=== PATIENT | female | born 1965 | race Caucasian/White ===

== ENCOUNTER 2023-05-08 19:00 | Emergency (ER) | payer BC, SELFPAY ==
--- NOTE | ~2023-05-08 | CT_ITS ---
EXAMINATION: CT brain wo con DATE: 05/08/2023 22:33 INDICATION: Anticoagulated patient post fall with head injury TECHNIQUE: Computed tomography (CT) of the head was performed without intravenous contrast. Sagittal and coronal reconstructions were performed. The mA was adjusted according to patient size. Iterative reconstruction technique was employed. The dose-length product was 605.33 mGy-cm. COMPARISON: None FINDINGS: No fracture. No acute intracranial hemorrhage, acute infarction or abnormal extra axial fluid collect ion. Ventricles are normal and symmetric. No mass/mass effect. The orbits, paranasal sinuses and mast oid air cells are normal. IMPRESSION: 1. Normal head CT. No fracture or acute intracranial process. Reviewed, dictated and finalized at location A. GER PEST
--- NOTE | ~2023-05-08 | CT_ITS ---
EXAMINATION: CT cervical spine wo con DATE: 05/08/2023 22:34 INDICATION: Anticoagulated patient post fall with head injury TECHNIQUE: Computed tomography (CT) of the cervical spine was performed without intravenous contrast. Automated exposure control and iterative reconstruction technique were employed. The dose-length pro duct was 477.26 mGy-cm. COMPARISON: None FINDINGS: Alignment is normal. Vertebral body heights are normal. No fracture. Mild disc height loss at C3-C4, C4-C5 and C6-7. Multilevel mild uncovertebral osteoarthritis throughout the cervical spine on both th e left and right. Moderate facet osteoarthritis on the left at T1-T2 and on the right at T3-T4. Other schroeder mild multilevel cervical and upper thoracic facet osteoarthritis. No significant cervical facet or neural foraminal stenosis. Cervical soft tissues and visualized portions of the superior mediastin um and apices of lungs are unremarkable. IMPRESSION: 1. Mild cervical and upper thoracic spondylosis. No acute osseous abnormality. Reviewed, dictated and finalized at location A. CAL GOODS DRILL OPERATOR
--- NOTE | ~2023-05-08 | XR_ITS ---
XR hand LT min 3V 05/08/2023 19:52 INDICATION: Left hand pain PROCEDURE: 3 views left hand COMPARISON: No prior studies for comparison. FINDINGS: Fracture, dislocation or subluxation is not identified. There is polyarticular osteoarthrit is. The soft tissues appear within normal limits. No foreign bodies are identified. IMPRESSION: 1: NO ACUTE BONE OR JOINT ABNORMALITY IDENTIFIED. Reviewed, dictated and finalized at location A. UNICATION ANALYST
--- NOTE | ~2023-05-08 | XR_ITS ---
XR hand RT min 3V 05/08/2023 19:52 INDICATION: Right hand pain after fall PROCEDURE: 3 views right hand COMPARISON: No prior studies for comparison. FINDINGS: Fracture, dislocation or subluxation is not identified. There is a subchondral cyst of the scaphoid, likely degenerative. There is mild polyarticular osteoarthritis. The soft tissues appear wi thin normal limits. No foreign bodies are identified. IMPRESSION: 1: NO ACUTE BONE OR JOINT ABNORMALITY IDENTIFIED. Reviewed, dictated and finalized at location A. S ENGRAVER
--- NOTE | ~2023-05-08 | CT_ITS ---
EXAMINATION: CT chest abdomen pelvis w con DATE: 05/08/2023 22:34 INDICATION: Anticoagulated patient with right chest wall pain and right lower quadrant hematoma post fall TECHNIQUE: Computed tomography (CT) of the chest, abdomen, and pelvis was performed with 100 mL Omnip aque-350 intravenous contrast. Automated exposure control and iterative reconstruction technique were employed. The dose-length product was 913.66 mGy-cm. COMPARISON: None FINDINGS: CHEST CT: Mild dependent atelectasis in the right lower lobe. No pneumonia, pulmonary edema, pleural effusion o r pneumothorax. Heart size is normal. Atherosclerotic coronary artery calcifications. No pericardial or pleural effusion. Thoracic aorta is normal in caliber with no dissection or acute traumatic aortic injury. Mild thoracic spondylosis. No evident rib fracture or other acute osseous abnormality. ABDOMEN/PELVIS CT: Liver, gallbladder, spleen, pancreas, bilateral adrenal glands and kidneys are normal. Bowels includi ng the appendix are normal. Tiny fat-containing umbilical hernia. Bladder is normal. The uterus is no t identified and has likely been surgically resected. No free intraperitoneal gas or fluid. No pathol ogically enlarged abdominal or pelvic lymphadenopathy. The abdominal aorta and its major branch vesse ls appear unremarkable with no evident vascular injury. Subcutaneous contusion overlying the anterior right iliac crest and spine Mild lumbar levocurvature with mild spondylosis. IMPRESSION: 1. No acute osseous, vascular or visceral organ injury in the chest, abdomen or pelvis. Reviewed, dictated and finalized at location A. ITURE REPRODUCER
--- NOTE | ~2023-05-08 | XR_ITS ---
XR knee LT 3V 05/08/2023 19:52 INDICATION: Left knee pain after fall PROCEDURE: 3 views left knee COMPARISON: No prior studies for comparison. FINDINGS: Fracture, dislocation or subluxation is not identified. No joint effusion. The soft tissues appear within normal limits. No foreign bodies are identified. IMPRESSION: 1: NO ACUTE BONE OR JOINT ABNORMALITY IDENTIFIED. Reviewed, dictated and finalized at location A. SHIP
[2023-05-08 19:04] VITALS: BP 112/64; PULSE 86; RESP 16; TEMP 36.6; O2SAT 99
--- NOTE | 2023-05-08 19:16 | PC.NURSE ---
Addendum entered by Shelia Bar RN 05/08/23 19:38: Pt also reports in on asa and plavix. Original Note: Pt arrives ambulatory from home after fall approx 3 hours ago at her son's indoor track meet. She states that she was crossing the track between a break in runners when she tripped over uneven viri causing her to first fall onto her L knee, then twisted and hit R hip/lower abd and finally her right face. Pt has large bruising bruising to R lower abd.
[2023-05-08 20:19] LABS: Basophils Percent Auto 0.6 % (0.2-1.2); Eosinophils Absolute Auto 0.1 K/mm3 (0-0.3); Eosinophils Percent Auto 1.9 % (0-4.4); Hematocrit 42.4 % (37.0-47.0); Immature Granulocyte Absolute 0.01 K/mm3 (0.00-0.031); Immature Granulocyte Percent A 0.2 % (0-0.5); Lymphocytes Absolute Auto 1.41 K/mm3 (0.9-3.2); Lymphocytes Percent Auto 27.3 % (18.3-44.2); Mean Corpuscular Hemoglobin 32.2 pg (26-34); Mean Corpuscular Volume 97.5 fl (80-100); Monocytes Absolute Auto 0.6 K/mm3 (0.1-0.6); Platelet Count Result 225 k/mm3 (150-375); Red Blood Count 4.35 M/mm3 (4.2-5.4); Red Cell Distribution Width 12.2 % (11.5-14.5); White Blood Count 5.2 K/mm3 (4.5-10.0)
[2023-05-08 20:30] LABS: Prothrombin Time 13.8 Seconds (11.1-14.7)
--- NOTE | 2023-05-08 20:30 | ED.GENADULT ---
HPI - General Adult General Chief complaint: Fall Stated complaint: Fall right face/side Time Seen by Provider: 05/08/23 19:15 History of Present Illness HPI narrative: patient 57-year-old female presents to emergency department with chief complaint of fall. Patient reports that she was walking at a family member's track meet tripped over the trach fill landing on her right side of her body. Patient reports she has pain in the left knee pain in bilateral hands reports that she has a large hematoma developed in her right lower quadrant and pain in her right breast area patient states that she has pain in her neck and also struck her head. The patient reports that she has an abrasion to the left knee the patient does report that she is on anti-platelet therapy and takes Plavix Related Data Allergies Allergy/AdvReac Type Severity Reaction Status Date / Time ciprofloxacin Allergy Unknown Swelling Verified 05/08/23 19:01 Penicillins Allergy Unknown Hives / Verified 05/08/23 19:01 Red Face sulfamethoxazole Allergy Unknown Swelling Verified 05/08/23 19:01 trimethoprim Allergy Unknown Swelling Verified 05/08/23 19:01 Review of Systems Review of Systems: A 10 system review of systems was completed on the patient and is negative except for what is stated in the HPI. Nursing and ancillary documentation was reviewed. Exam Narrative: GENERAL: Well-appearing, well-nourished, and in no acute distress. HEAD: Normocephalic, atraumatic. EYES: PERRLA and EOMI. ENT: Nares clear, no rhinorrhea or epistaxis. Mucous membranes moist. NECK: Supple. mild midline C-spine tenderness CHEST: Clear to auscultation. No respiratory distress. chest wall is tender to palpation no appreciable ecchymosis HEART: Regular rate and rhythm. No murmur heard. Normal peripheral pulses. ABDOMEN: Soft, diffusely tender to palpation, nondistended, normal active bowel sounds. ecchymosis present no right lower quadrant EXTREMITIES: Normal range of motion slight bruising present to the dorsum of bilateral hands and left knee small abrasion to the dorsum of the left knee. No edema. SKIN: Warm, dry, no rash. NEURO: No focal deficits. Alert and oriented x3. PSYCH: Normal mood and affect. Course Vital Signs Vital signs: Vital Signs Temperature 36.6 C 05/08/23 19:04 Pulse Rate 86 05/08/23 19:04 Respiratory Rate 16 05/08/23 19:04 Blood Pressure 112/64 05/08/23 19:04 Pulse Oximetry 99 05/08/23 19:04 Temperature 36.6 C 05/08/23 19:04 Pulse Rate 86 05/08/23 19:04 Respiratory Rate 16 05/08/23 19:04 Blood Pressure 112/64 05/08/23 19:04 Pulse Oximetry 99 05/08/23 19:04 Medical Decision Making MDM Narrative Medical decision making narrative: differential diagnosis includes intracranial hemorrhage, cervical spine fracture, intrathoracic or intra-abdominal trauma Addendum x-rays of the hand bilaterally and knee on the left show no evidence fracture. CT head showed no evidence of acute intracranial pathology CT cervical spine showed no evidence of fracture CT chest abdomen pelvis showed a contusion present to the abdominal wall in the right lower quadrant Vital Signs Vital Signs: Vital Signs Temperature 36.6 C 05/08/23 19:04 Pulse Rate 86 05/08/23 19:04 Respiratory Rate 16 05/08/23 19:04 Blood Pressure 112/64 05/08/23 19:04 Pulse Oximetry 99 05/08/23 19:04 Temperature 36.6 C 05/08/23 19:04 Pulse Rate 86 05/08/23 19:04 Respiratory Rate 16 05/08/23 19:04 Blood Pressure 112/64 05/08/23 19:04 Pulse Oximetry 99 05/08/23 19:04 Lab Data 05/08/23 20:07 05/08/23 21:14 Labs: Lab Results 05/08/23 05/08/23 05/08/23 Range/Units 20:07 20:54 21:14 WBC 5.2 (4.5-10.0) K/mm3 RBC 4.35 (4.2-5.4) M/mm3 Hgb 14.0 (12.0-15.0) g/dL Hct 42.4 (37.0-47.0) % MCV 97.5 (80-100) fl MCH 32.2 (26-34) pg MCHC 33.0
[2023-05-08 20:31] LABS: Partial Thromboplastin Time 21.3 SECONDS (22.3-36.8)
[2023-05-08 21:03] LABS: Appearance Urine Clear (Clear); Bilirubin Urine Negative (Negative); Blood Urine Negative (Negative); Color Urine Yellow (Yellow); Glucose Urine UA Negative (Negative); Ketones Urine Negative (Negative); Leukocyte Esterase Ur Negative LEU/UL (Negative); Nitrate Urine Negative (Negative); Protein Urine Negative (Negative); Specific Grav Ur 1.023 (1.001-1.035); pH Urine 5.5 (5.0-9.0)
[2023-05-08 21:09] LABS: Add Urine Microscopic? NO
[2023-05-08 21:28] LABS: Alanine Aminotransferase 59 U/L (6-35); Albumin Level 4.4 g/dL (3.5-5.1); Alkaline Phosphatase 49 U/L (38-126); Anion Gap 11 mmol/L (8-16); Aspartate Amino Transferase 51 U/L (14-36); Bilirubin,Total 0.8 mg/dL (0.2-1.3); Blood Urea Nitrogen 24 mg/dL (7-17); Calcium 9.5 mg/dL (8.4-10.2); Carbon Dioxide 21 mmol/L (22-30); Chloride 104 mmol/L (98-107); Estimated CRCL calculation 70 ml/min; Estimated Glomerular Filt Rate > 60; Glucose 104 mg/dL (65-110); Potassium 4.2 mmol/L (3.4-5.0); Sodium 136 mmol/L (137-145)
[2023-05-09 00:30] VITALS: BP 118/64; PULSE 67; RESP 14; O2SAT 99
== END 2023-05-09 00:31 | disposition home or self-care (01) ==
PROVIDERS: Emergency Provider Emergency Medicine; PCP Physician Assistant
DX: S80.02XA Contusion of left knee, initial encounter (principal); S60.222A Contusion of left hand, initial encounter; S60.221A Contusion of right hand, initial encounter; S30.1XXA Contusion of abdominal wall, initial encounter; S09.90XA Unspecified injury of head, initial encounter; M47.812 Spondylosis without myelopathy or radiculopathy, cervical region; M47.814 Spondylosis without myelopathy or radiculopathy, thoracic region; Z79.02 Long term (current) use of antithrombotics/antiplatelets; W01.0XXA Fall on same level from slipping, tripping and stumbling without subsequent striking against object, initial encounter
CPT/HCPCS: 36415; 70450; 71260; 72125; 73130; 73562; 74177; 80053; 81003; 85025; 85610; 85730; 99284; Q9967

== ENCOUNTER 2024-10-02 00:48 | Day surgery (SDC) | payer BC, SELFPAY ==
[2024-09-20 12:13] VITALS: BMI 27.3
--- NOTE | 2024-09-20 12:25 | PC.NURSE ---
Spoke with patient regarding medication Plavix. Patient verbalizes understanding that the last dose is to be taken on 09/27/2024 and the Endoscopist will instruct them when to restart after the procedure.
--- OUTSIDE RECORDS SUMMARY | 2024-10-02 00:51 | XMS_ITS | Encounter Summary ---
Author Organization [facility] Address [address] [place] [address] Care Team Providers Care Claims Service Adjustor Name Role Phone Misbah Gan MD Primary Care Provider [phone] Encounter Details Date Type Department Care Team (Late st Contact Info) Description 12/07/2019 Pre-Procedure Call [place] Sign Language Interpreter [facility] [place], [place] [id number] Benjamín Mazariegos MD [address] [place] [address] Social History Tobacco Use Types Packs/Day Years Used Date Smoking Tobacco: Never Assessed Comments Unknown Sex and Gender Information Value Date Recorded Sex Assigned at Not on file Legal Sex Female 7:10 PM CDT Gender Identity Not on file Sexual Orientation Not on file COVID-19 Exposure Response Date Recorded In the last month, have you been in contact with someone who was confirmed or suspected to have Coronavirus / COVID-19? No / Unsure 11/29/2019 6:56 AM CDT documented as of this encounter Plan of Treatment Not on file documented as of this encounter Visit Diagnoses Not on filedocumented in this encounter Care Teams Claims Service Adjustor Relationship Specialty Start Date End Date Misbah Gan MD [address] [facility] [address] [place] [address] PCP - General FAMILY PRACTICE 11/21/19 documented as of this encounter
--- OUTSIDE RECORDS SUMMARY | 2024-10-02 00:51 | XMS_ITS | Encounter Summary ---
Author Organization [facility] Address [address] [place] [address] Phone Care Team Providers Care Parachute Manufacturing Supervisor Name Role Phone Misbah Gan MD Primary Care Provider [phone] Kashif Bailey MD Unavailable [phone] Miladys Rocha Primary Care Pr ovider Ashok Lantigua MD Primary Care Provider [phone] Encounter Details Date Type Department Care Team (Latest Contact Info) Description 11/27/2019 Orders Only [facility] Scanning, Provider Social History Tobacco Use Types Packs/Day Years Used Date Smoking Tobacco: Never Assessed Comments Unknown Sex and Gender Information Value Date Recorded Sex Assigned at Not on file 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 Gender Identity Not on file Sexual Orientation Not on file documented as of this encounter Plan of Treatment Upcoming Encounters Date Type Department Care Team (Latest Contact Info) Description 10/05/2024 9:00 AM CDT Hospital Encounter [facility] OR [facility] [place], [place] [id number] Anastacio Schultz MD [address] [place] [address] 10/05/2024 9:00 AM CDT - 10/05/2024 10:20 AM CDT Surgery [facility] OR [address] [place] [address] Anastacio Schultz MD [address] [place] [address] EXCISIONAL LEFT BREAST BIOPSY WITH NEEDLE LOCALIZATION X2 Scheduled Procedures Name Priority Associated Diagnoses Date/Ti me BIOPSY BREAST NEEDLE LOCALIZATION ATYPICAL DUCTAL HYPERPLASIA LEFT BREAST 10/05/2024 9:00 AM CDT documented as of this encounter Procedures Procedure Name Priority Date/Time Associated Diagnosis Comments CARDIOLOGY DOCUMENT SCAN 11/27/2019 documented in this encounter Results * CARDIOLOGY DOCUMENT SCAN (11/27/2019) Anatomical Region Laterality Modality Other us Provider Scanning CV CARDIAC SERVICES PROCEDURES Final Result documented in this encounter Visit Diagnoses Not on filedocumented in this encounter Care Teams Parachute Manufacturing Supervisor Relationship Specialty Start Date End Date Misbah Gan MD [address] [facility] [address] [place] [address] PCP - General 01/03/19 05/18/23 Miladys Rocha PA [address] [facility] [address] [place] [address] PCP - General Physician Game Operator 05/19/23 09/27/24 Ashok Lantigua MD [address] [place] [address] PCP - General Rheumatology 09/28/24 Kashif Bailey MD [address] [facility] [address] [place] [address] Referring Physician Cardiovascular Disease 03/07/20 documented as of this encounter
--- OUTSIDE RECORDS SUMMARY | 2024-10-02 00:51 | XMS_ITS | Encounter Summary ---
Author Organization [facility] Address [address] [place] [address] Phone Care Team Providers Care Cost Accounting Manager Name Role Phone Kashif Bailey MD Unavailable Miladys Rocha Primary Care Pr ovider Ashok Lantigua MD Primary Care Provider [phone] Encounter Details Date Type Department Care Team (Late st Contact Info) Description 07/17/2024 Telephone [facility] Cardiology [address] [facility] [address] [place] [address] [place] [address] Go Lopez MD [address] [facility] [address] [place], [place] [id number] Social History Tobacco Use Types Packs/Day Years Used Date Smoking Tobacco: Never Smokeless Tobacco: Never Personal Safety Answer Date Recorded Have you ever been in or are you currently in a harmful physical or emotional relationship or is someone making you feel afraid or unsafe? 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 Gender Identity Not on file Sexual Orientation Not on file documented as of this encounter Plan of Treatment Upcoming Encounters Date Type Department Care Team (Latest Contact Info) Description 10/05/2024 9:00 AM CDT Hospital Encounter [facility] OR [address] [place] [address] Anastacio Schultz MD [address] [place] [address] 10/05/2024 9:00 AM CDT - 10/05/2024 10:20 AM CDT Surgery [facility] Main OR [address] [place] [address] Anastacio Schultz MD [address] [place] [address] EXCISIONAL LEFT BREAST BIOPSY WITH NEEDLE LOCALIZATION X2 Scheduled Procedures Name Priority Associated Diagnoses Date/Ti me BIOPSY BREAST NEEDLE LOCALIZATION ATYPICAL DUCTAL HYPERPLASIA LEFT BREAST 10/05/2024 9:00 AM CDT documented as of this encounter Visit Diagnoses Not on filedocumented in this encounter Care Teams Cost Accounting Manager Relationship Specialty Start Date End Date Miladys Rocha PA PCP - General Physician Tour Narrator 05/19/23 09/27/24 Ashok Lantigua MD [facility] [address] [place] [address] PCP - General Rheumatology 09/28/24 Kashif Bailey MD Referring Physician Cardiovascular Disease 03/07/20 documented as of this encounter
--- OUTSIDE RECORDS SUMMARY | 2024-10-02 00:51 | XMS_ITS | Encounter Summary ---
Author Organization [facility] Address [address] [place] [address] Phone Care Team Providers Care Stitch Separator Name Role Phone Misbah Gan MD Primary Care Provider [phone] Kashif Bailey MD Unavailable [phone] Miladys Rocha Primary Care Pr ovider Ashok Lantigua MD Primary Care Provider [phone] Encounter Details Date Type Department Care Team (Latest Contact Info) Description 09/04/2021 Orders Only [facility] Scanning, Provider Social History Tobacco Use Types Packs/Day Years Used Date Smoking Tobacco: Never Smokeless Tobacco: Never Comments No Sex and Gender Information Value Date Recorded Sex Assigned at Not on file Legal Sex Female 8:55 PM CALL SPECIALIST Gender Identity Not on file Sexual Orientation Not on file documented as of this encounter Plan of Treatment Upcoming Encounters Date Type Department Care Team (Latest Contact Info) Description 10/05/2024 9:00 AM CDT Hospital Encounter [facility] OR [address] [place] [id number] Anastacio Schultz MD [address] [place] [address] 10/05/2024 9:00 AM CDT - 10/05/2024 10:20 AM CDT Surgery [facility] OR [address] [place] [address] [place] [address] Anastacio Schultz MD [address] [facility] [address] [place] [address] EXCISIONAL LEFT BREAST BIOPSY WITH NEEDLE LOCALIZATION X2 Scheduled Procedures Name Priority Associated Diagnoses Date/Ti me BIOPSY BREAST NEEDLE LOCALIZATION ATYPICAL DUCTAL HYPERPLASIA LEFT BREAST 10/05/2024 9:00 AM CDT documented as of this encounter Procedures Procedure Name Priority Date/Time Associated Diagnosis Comments CARDIOLOGY DOCUMENT SCAN 09/04/2021 documented in this encounter Results * CARDIOLOGY DOCUMENT SCAN (09/04/2021) Anatomical Region Laterality Modality Other us Provider Scanning CV CARDIAC SERVICES PROCEDURES Final Result documented in this encounter Visit Diagnoses Not on filedocumented in this encounter Care Teams Stitch Separator Relationship Specialty Start Date End Date Misbah Gan MD [address] [address] PCP - General 01/03/19 05/18/23 Miladys Rocha PA [address] [address] PCP - General Physician Beer Maker 05/19/23 09/27/24 Ashok Lantigua MD [address] [place] [address] PCP - General Rheumatology 09/28/24 Kashif Bailey MD [address] [address] Referring Physician Cardiovascular Disease 03/07/20 documented as of this encounter
--- OUTSIDE RECORDS SUMMARY | 2024-10-02 00:51 | XMS_ITS | Data Portability ---
Author Organization [facility] Address [address] [place] [address] Care Team Providers Care Landscape Management Technician Name Role Phone YARA RAMIREZ Primary Care Provider Unavailab le Assessment Encounter Date Assessment Date Assessment LastModified by Organization Details LastModified Time 05/17/2024 05/17/2024 Mammogram: due in june 2024. pap smear: KALEE, ovaries remain. cologuard was completed approx 2 years ago. eye exam: yearly dental exam: every 6months. UTD Not available 05/17/2024 11:08:44 Plan of Treatment Reminders Order Date Submit Date Provider Last Modified By Organization Details Last Modified Time Details Appointments ANY 15 2024 09:00A M MIESHA Blount Not available Not available Not available Lab noninvasi ve colorecta l cancer DNA + occult blood screening , QL, stool 2023 12 024 A[place]ANDRIA Kast (Cologuard Orders Only), [address], [address], [place], [address], 06/26/2024 18:57:40 Referral None recorded. Procedures None recorded. Surgeries None recorded. Imaging None recorded. Medication Orders None recorded. Patient TargetsNo targets recorded. Patient Instructions Encounter Date Encounter Id Patient Instructions Last Modified By Organization Details Last Modified Time 05/17/2024 [id number] A healthy lifestyle: care instructions Not available 05/17/2024 11:18:41 Reason for Referral None Reported. Results Created Date Observation Date Name Description Value Unit Range Abnormal Flag Note LastModifiedBy Organization Detail LastModifiedTime 06/17/1906/17/2024 COLOG UARD cologuard result reportable POSITI VE negati ve abnormal POSIT FLORIDALMA TEST RESUL T. A posit floridalma Colog uard resul t shoul d be follo wed with a colon oscop y or visua l exami natio n of the colon . The james l value (refe rence range ) for this assay is negat floridalma. TEST DESCR IPTIO N: [place] site algor ithmi c anne-marie sis of stool DNA-b hayley davis with hemog lobin immun oassa y. Quant itati ve value s of indiv idual bioma rkers are not repor table and are not assoc iated with indiv idual bioma rker resul t refer ence range s. Colog uard is inten ded for color ectal cance r scree geovanny of adult s of eithe r sex, 45 years or older , who are at [facility] for color ectal cance r (CRC) . Colog uard has been appro true for use by the U.S. FDA. The perfo rmanc e of Colog uard was estab lishe d in a cross secti onal study of [facility] adult s aged 50-84 . Colog uard perfo rmanc e in patie nts ages 45 to 49 years was estim ated by markie-g mackenziep anne-marie sis of near- age group s. Colon oscop ies perfo rmed for a posit floridalma resul t may find as the most clini meeta signi fican t lesio n: color ectal cance r [4.0% ], advan mike adeno ma (incl uding sessi le shira zachery polyp s great er than or equal to 1cm diame ter) [20%] or non- advan mike adeno ma [31%] ; or no color ectal neopl kyle [45%] . These estim ates are deriv ed from a prosp ectiv e cross -sect ional scree geovanny study of 10,00 0 indiv idual s at [facility] risk for color ectal cance r who were scree magalis with both Colog uard and colon oscop y. (Cheryl Andino. et al, N Engl J Med 2014; 370(1 4):12 86-12 97.) Colog uard may produ ce a false negat floridalma or false posit floridalma resul t (no color ectal cance r or preca ncero us polyp prese nt at colon oscop y follo w up). A negat floridalma Colog uard test resul t does not guara ntee the absen ce of CRC or advan mike adeno ma (pre- cance r). The curre nt Colog uard scree geovanny inter angela is every 3 years . (Amer ican Cance r Socie ty and U.S. Multi -Soci ety Task Force ). Colog uard perfo rmanc e data in a 10,00 0 patie nt pivot al study using colon oscop y as the refer ence metho d can be acces sed at the follo wing locat ion: www.e xactl abs.c om/re jj . Addit ional descr iptio n of the Colog uard test proce ss, warni ngs and preca ution s can be found at www.c ologu sangita.c om. Not Available Kast (Cologuard Orders Only) [address], [place], [address], 06/26/2024 18:57:40 06/15/19 25 06/14/2024 MAMMO , scree geovanny, digit al, bilat eral No observ ation record ed. [email or web address] [address], [address], 06/21/2024 18:24:10 06/22/19 25 06/21/2024 MAMMO , diagn ostic , digit al, unila teral No observ ation record ed. [address], [address], 06/22/2024 17:28:29 06/23/19 25 06/21/2024 MAMMO , diagn ostic , digit al, unila teral No observ ation record ed. [address] [place], [address], 06/27/2024 09:30:58 Result Notes None recorded. 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 Shweta Gaffney LPN null, [place] - [facility] 4 10:49:13 Coronary atherosclerosi s 839868480 Active 2023 MIESHA Blount Attn: Marcelinoin g,[address] [place], [address], [place] - [facility] 4 11:18:11 Hyperlipidemia 57827063 Active 2023 MIESHA Blount Attn: Accountin g,[address] [place], [address], [facility] - [facility] 4 11:18:13 Benign essential hypertension 1986734 Active 2023 MIESHA Blount Attn: Accountin g,[address] [place], [address], [place] [facility] 4 11:18:15 Long-term drug therapy Active 2023 MIESHA Blount Attn: Marcelinoin g,[address] [place], [address], [place] [facility] 4 11:18:17 Overweight 490951541 Active 2023 MIESHA Blount Attn: Marcelinoin g,[address] [place], [address], [place] [facility] 4 11:18:39 Body mass index 25-29 - overweight 829685899 Active 2023 MIESHA Blount Attn: Marcelinoin g,[address] [place], [address], [facility] - [facility] 4 11:18:40 History of placement of stent for coronary artery disease 244612183 Active 2023 MIESHA Blount Attn: Accountin g,[address] [place], [address], [facility] - [facility] 4 14:34:54 Problem Notes None recorded. Procedures Surgical History Date Name Laterality Status Provider Name and Address Organization Details Recorded Time 06/07/19 11 hysterectomy completed Shweta Gaffney LPN [place] [facility] 05/17/2024 10:54:46 06/07/19 05 excision of sebaceous cyst completed Shweta Gaffney LPN [place] [facility] 05/17/2024 10:55:39 06/07/18 71 Eye Surgery completed Shweta Gaffney LPN [place] [facility] 05/17/2024 10:54:59 biopsy of breast completed Shweta love DEPARTMENTAL BUYER [place] [facility] 05/17/2024 10:56:00 Imaging Results Imaging Date Name Status LastModified by Organiz ation Details LastModified Time 06/14/2024 MAMMO, screening, digital, [facility] [place] [address], [address], 06/21/2024 18:24:10 06/21/2024 MAMMO, diagnostic, digital, unilateral completed [address], [address], 06/22/2024 17:28:29 06/21/2024 MAMMO, diagnostic, digital, unilateral completed [address], [address], 06/27/2024 09:30:58 Procedure Notes None recorded. Medical Equipment None Reported. Allergies Allergen ID Allergen Name Allergen Category Reaction Reaction Severity Criticality Documentation Date Start Date Code Code System Note Provider Name and Address Organization Details Recorded Time 533212 Cipro medicatio n swelling moderate high 05/17/2024 46486 3 RxNorm Not Available Not Available Not Available 608196 sulfameth oxazole / trimethop rim medicatio n swelling moderate high 05/17/2024 76949 RxNorm Not Available Not Available Not Available 998388 Product containin g penicilli n (product) medicatio n rash mild high 05/17/2024 58908 8001 SNOMED Not Available Not Available Not Available Medications Name Sig Start Date Stop Date Status Note LastModified by Organization Details LastModified Time atorvastati n 40 mg tablet Take 1 tablet every day by oral route. active Not Available Not Available No t Available promethazin e-DM 6.25 mg-15 mg/5 mL oral syrup TAKE 5 ML BY MOUTH EVERY 4 TO 6 HOURS FOR 5 DAYS NEEDED 05/17 completed Not Available Not Available Not Available albuterol sulfate 2.5 mg/3 mL (0.083 %) solution for nebulizatio n USE 1 VIAL VIA NEBULIZER FOUR TIMES DAILY FOR 5 DAYS 05/17 completed Not Available Not Available Not Available azithromyci n 250 mg tablet TAKE 2 TABLETS BY MOUTH FOR 1 DAY THEN TAKE 1 TABLET BY MOUTH DAILY 05/17 completed Not Available Not Available Not Available lisinopril 20 mg tablet Take 1 tablet every day by oral route for 90 days. active Not Available Not Available No t Available prednisone 20 mg tablet TAKE 2 TABLETS BY MOUTH DAILY FOR 5 DAYS 05/17 completed Not Available Not Available Not Available isosorbide mononitrate ER 30 mg tablet,exte nded release 24 hr active Not Available Not Available Not Available clopidogrel 75 mg tablet active Not Available Not Available Not Available benzonatate 100 mg capsule TAKE 1 CAPSULE BY MOUTH THREE TIMES DAILY FOR 10 DAYS 05/17 completed Not Available Not Available Not Available nitroglycer in 0.4 mg sublingual tablet active Not Available Not Available Not Available albuterol sulfate HFA 90 mcg/actuati on aerosol inhaler INHALE 2 INHALATIO N BY MOUTH FOUR TIMES DAILY 05/17 completed Not Available Not Available Not Available bupropion HCl XL 150 mg 24 hr tablet, extended release One tab p.o. daily active Not Available Not Available No t Available Actemra ACTPen 162 mg/0.9 mL subcutaneou s pen injector active Not Available Not Available Not Available Vitals Date Recorded Body height Body mass index (BMI) Body weight Heart rate Body temperature Oxygen saturation Oxygen saturation in Arterial blood by Pulse oximetry Systolic blood pressure Diastolic blood pressure Provider Name and Address Organization Details Last Updated DateTime 4 172.72 cm 28.4 kg/m2 90547.7 7 g 82 /min 98.6 [degF] 99 % 99 % 122 mm[Hg] 78 mm[Hg] Shweta Gaffney LPN [place] - [facility] 10:44:57 Date Recorded Respiratory rate Systolic blood pressure Diastolic blood pressure Provider Name and Address Organization Details Last Updated DateTime 05/17/2024 18 /min 110 mm[Hg] 80 mm[Hg] MIESHA Blount Attn: [address] [facility], [place], [address], [place] [facility] 05/17/2024 11:17:18 Social History Question Answer Notes LastModified by Organizat ion Details LastModified Time Tobacco Smoking Status Never Smoker Shweta Gaffney LPN null, [place] [facility] 05/17/2024 10:52:11 Do You Have An Advance Directive? Yes Information n ot available 05/17/2024 What Is Your Level Of Alcohol Consumption? Occasional Information not available 05/17/2024 Are You Blind Or Do You Have Difficulty Seeing? No Information n ot available 05/17/2024 What Is Your Level Of Caffeine Consumption? Moderate Information not available 05/17/2024 In The 14 Days Before Symptom Onset, Have You Had Close Contact With A Laboratory-confirm ed COVID-19 While That Case Was Ill? No Information n ot available 05/17/2024 In The 14 Days Before Symptom Onset, Have You Had Close Contact With A Person Who Is Under Investigation For COVID-19 While That Person Was Ill? No Information not available 05/17/2024 Have You Been To An Area Known To Be High Risk For COVID-19? No Information not available 05/17/2024 Are You Currently Employed? Yes Information not available 05/17/2024 Are You Deaf Or Do You Have Serious Difficulty Hearing? No Information not available 05/17/2024 What Type Of Diet Are You Following? REGULAR Information n ot available 05/17/2024 What Is The Highest Grade Or Level Of School You Have Completed Or The Highest Degree You Have Received? [id number] Information not available 05/17/2024 Are There Any Guns Present In Your Home? Yes Information not available 05/17/2024 What Was The Date Of Your Most Recent Tobacco Screening? 05/17/2024 Information not available 05/17/2024 What Is Your Relationship Status? Information not available 05/17/2024 Do You Use Your Seat Belt Or Car Seat Routinely? Yes Information not available 05/17/2024 Do You Feel Stressed (tense, Restless, Nervous, Or Anxious, Or Unable To Sleep At Night)? [id number] Information not available 05/17/2024 Do You Use Any Illicit Or Recreational Drugs? No Information not available 05/17/2024 Do You Use Sunscreen Routinely? Yes Information not available 05/17/2024 Has Tobacco Cessation Counseling Been Provided? No Information not available 05/17/2024 Do You Or Have You Ever Used Any Other Forms Of Tobacco Or Nicotine? No Information not available 05/17/2024 Sex: Unknown Functional Status Question Answer Note LastModified by Organization D etails LastModified Time What is your exercise level? Moderate Information not available 05/17/2024 Mental Status None recorded. Family History Relationship Description Onset Age of this Age Resolved Age Notes LastModified by Organization Details LastModified Time Brother Dementia [email or web address] Not availab le 05/17/2024 10:50:20 Brother Diabetes mellitus [email or web address] Not available 2023 10:50:32 Brother Hypertensive disorder mhoganlpn Not available 2023 10:50:45 Brother Attention deficit hyperactivit y disorder tcarterma Not available 05/17 12:18:22 Brother Hypercholest erolemia tcarterma Not available 2023 12:18:30 Daughter Harmful pattern of use of alcohol tcarterma Not available 2023 12:18:14 Mother Attention deficit hyperactivit y disorder tcarterma Not available 05/17 12:18:22 Medical History Condition Response Anxiety Disorder N Diabetes N Coronary Artery Disease N Muscle, Joint, or Bone Problems Y Other N Atrial Fibrillation N Seizures/Epilepsy N Have you had a colonoscopy in the last 1 0 years? N Acid Reflux (GERD) N Cancer N Stroke N Thyroid Problems N Blood Clots N COPD N Depression N GI Problems N Asthma N Allergies N Have you had a PSA blood test in the las t year? N Skin Problems N Anemia N High Cholesterol Y Osteoporosis N Gynecological History Statement/Question Response Date of LMP 06/07/2010 Obstetrics History GPAL:G 0 P 0 0 0 0 Past Encounters Encounter ID Performer Location Encounter Start Date Encounter Closed Date Diagnosis/Indication Diagnosis SNOMED-CT Code Diagnosis ICD10 Code Diagnosis Note [id number] MIESHA Blount [facility] [address] [place] [address] 05/17/2024 10:24:22 05/17/2024 12:49:39 Adult health examination 193084399 Z00.01 wellness completed. Long-term drug therapy 228160330 Z79.891 Patient is up-to-date on labs with her specialist s Hyperlipidemia 76698869 E78.5 on statin therapy, managed by cardiology , atorvastat in 40 mg daily labs are up-to-date with them Benign ess ential hypertension 4986709 I10 very stable on lisinopril 20 mg daily Takayasu's disease 85559 9008 M31.[address] Lantigua follows with [facility]. on Actemra injection once weekly, managed by Rheumatolo gy.; Coronary atherosclerosis 115342262 I25.[address] Lopez with [facility]. She is asymptomat ic at this time. On atorvastat in 40 mg daily Screening for malignant neoplasm of colon 239150767 Z12.11 Patient opts for Cologuard screening method Body mass index 25-29 - overweight 597326833 Z68.28 BMI 28.4 Overweight 879955336 E66 .3 History of placement of stent for coronary artery disease 736313215 Z95.5 1 stent placed in the LAD. Dr. Lopez with [facility]. Patient is on Plavix 75 mg daily Health Concerns Section Related Observation LastModified by Organization Detai ls LastModified Time None Recorded Concern Status LastModified by Organization Details LastModified Time None Recorded Advance Directives Directive Y: Payers Encounter Date Sequence Insurance Name Policy Number Policy Krause Covered Member ID Krause Member ID Guarantor Name 05/17/2024 1 [place] [employer] 112 Dana Gonzalez [id number] Dana Gonzalez Notes Date Note Type Note Provider Name and Address Organization Details Recorded Time 05/17/2024 text/html Patient was seen once at the primary care providers old office. She presents today to reestablish at new location. She does have a history of takayasu's disease on Actemra pen managed by Rheumatology, with underlying coronary artery disease with 1 stent placed, hypertension and hyperlipidemia. She is followed by a roofing tile sorter. She does take Plavix 75 mg daily as well as atorvastatin 40 mg daily, isosorbide mononitrate ER 30 mg daily and lisinopril 20 mg daily. She has p.r.n. nitroglycerin sublingual available should she need it. She is due for colon screening. MIESHA Blount Attn: Accounting[address] [place], [address], [facility] - [facility] 06/03/2024 14:36:34 OBGyn Episode No OBEpisode recorded.
--- OUTSIDE RECORDS SUMMARY | 2024-10-02 00:51 | XMS_ITS | Encounter Summary ---
Author Organization [facility] Address [address] [place] [address] Care Team Providers Care Litigation Associate Name Role Phone Unavailable Primary Care Provider Unavailabl e Encounter Details Date Type Department Care Team (Late st Contact Info) Description 08/06/2022 Lab Requisition [facility] DermPath Lab [address] [place] [address] Pierre Venegas MD [address] [place] [address] Social History Tobacco Use Types Packs/Day Years Used Date Smoking Tobacco: Never Assessed Comments Unknown Sex and Gender Information Value Date Recorded Sex Assigned at Not on file Legal Sex Female 9:54 AM CDT Gender Identity Not on file Sexual Orientation Not on file documented as of this encounter Plan of Treatment Not on file documented as of this encounter Procedures Procedure Name Priority Date/Time Associated Diagnosis Comments DERMATOPATHOLOGY Routine 08/05/2022 3:33 AM [facility] documented in this encounter Results * DERMATOPATHOLOGY (08/05/2022 3:33 AM FIELD APPRAISER) Case Report Dermatopathology Report Case: [id number] Authorizing Provider: Pierre Venegas MD Collected: 08/05/2022 03:33 AM Ordering Location: [facility] DermPath Lab Received: 08/06/2022 02:20 PM Pathologist: Lucy Maki MD Specimens: A) - Skin, left cheek below eye B) - Skin, right mid flexor forearm 3:14 PM [facility] DERMATOPATHOLOGY [facility]ORATORY Amended Report A: This lesion is not present at the sampled margin of the specimen. B: This lesion is present at the margin of the specimen. 3:14 PM [facility] DERMATOPATHOLOGY [facility]ORAT[facility] Final Diagnosis Specimen A. SKIN, left cheek below eye: HYPERPLASTIC (HYPERTROPHIC) ACTINIC KERATOSIS (L57.0) ARISING IN A BENIGN VERRUCOUS KERATOSIS, INFLAMED (L82.1) Specimen B. 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 The specimen consists of a shave removal measuring 4x3x1 mm. Jar 0. Specimen B: Received is one formalin filled container labeled with the patient's name and designated right mid flexor forearm. The specimen consists of two shaved biopsies measuring 8x8x1 mm and 1x1x1 mm. Jar 0. 3:14 PM [facility] DERMATOP[facility]Y [facility] Microscopic Description Specimen A. SKIN, left cheek below eye: There is hyperkeratosis alternating with parakeratosis. There is epidermal hyperplasia with disorderly maturation of keratinocytes with nuclear pleomorphism confined to the lower half of the epidermis. The adjacent epidermis shows hyperkeratosis, papillomatosis, hypergranulosis, and acanthosis. Inflammatory cells are present within the dermis. These histological findings can be seen in a verruca vulgaris or a seborrheic keratosis. Specimen B. SKIN, right mid flexor forearm: The epidermis shows parakeratosis, full thickness disorderly maturation of keratinocytes, mitoses at different levels, and dyskeratotic cells. 3 3:14 PM [facility] Disclaimer An external and internal positive and negative controls are appropriate for the histochemical, immunohistochemical and immunofluorescence stain(s) in this case (if any), except where stated explicitly. The performance characteristics of the stain(s) cited in this report were developed and its performance characteristic determined by the Dermatopathology Laboratory at [facility], directed by Dr. Steve Traore. These tests need not be, and therefore are not, approved by the [place] Food and Drug Administration. The tests are used for clinical purposes. Billing Codes Specimen Charges Stain Charges 89231 20945 1 1 3 3:14 PM [facility] Embedded Images 3 3:14 PM [facility] Pathology/Cytology TISSUE SPECIMEN FROM SKIN / Unknown 08/05/2022 3:33 AM FIELD APPRAISER 08/06/2022 2:20 PM [facility] Miscellaneous samples (specimen) TISSUE SPECIMEN FROM SKIN / Unknown 08/05/2022 3:33 AM FIELD APPRAISER 08/06/2022 2:20 PM [facility] Pierre Venegas MD LAB - PATHOLOGY/CYTOLOGY ORD ERABLES Edited Result - Final DERMATOPATHOLOGY LABORATORY [facility] - Department of Dermatology [address], [address] [phone] documented in this encounter Visit Diagnoses Not on filedocumented in this encounter
--- OUTSIDE RECORDS SUMMARY | 2024-10-02 00:51 | XMS_ITS | Clinical Summary ---
Author Organization [facility] Address [address] [place] [address] Care Team Providers Care Press Leader Name Role Phone Kashif Bailey MD Unavailable [phone] Ashok Lantigua MD Primary Care Provider [phone] Allergies Active Allergy Reactions Criticality Noted Date Comments Ciprofloxacin Swelling Medium 12/20/2019 Penicillins Rash Medium 12/20/2019 Sulfamethoxazole-Trimethoprim Swelling Medium 2015 Medications aspirin 81 mg enteric coated tablet Take 1 tablet (81 mg total) by mouth daily 90 tablet 3 3 Active nitroglycerin (NITROSTAT) 0.[address] 1 tablet (0.4 mg total) under the tongue every 5 (five) minutes as needed for chest pain 100 tablet 1 4 Active clopidogreL (PLAVIX) 75 mg tablet TAKE 1 TABLET(75 MG) BY MOUTH DAILY 90 tablet 3 4 Active isosorbide mononitrate ER (IMDUR) 30 mg 24 hr tablet Take 1 tablet (30 mg total) by mouth daily 90 tablet 3 4 Active atorvastatin (LIPITOR) 40 mg tablet Take 1 tablet (40 mg total) by mouth daily 90 tablet 3 4 Active tocilizumab (Actemra ACTPen) 162 mg/0.9 mL pen injectorIndicat ions:GCA (giant cell arteritis) (HCC) Inject 162 mg under the skin every 7 days 10.8 mL 1 4 Active lisinopriL (PRINIVIL,ZESTR IL) 20 mg tablet TAKE 1 TABLET(20 MG) BY MOUTH DAILY 90 tablet 3 5 Active lisinopriL (PRINIVIL,ZESTR IL) 20 mg tablet Take 1 tablet (20 mg total) by mouth daily 90 tablet 3 4 025 Discontinued Hospital, Clinic, or Other Facility Administered Medication Ordered Dose Route Frequency Start Date End Date Status perflutren lipid (DEFINITY) 1.5 mL in sodium chloride 0.9% 10 mL syringe 1 - 10 mL IV Once in imaging 12/16/2021 Active perflutren protein-a (OPTISON) 3 mL in sodium chloride 0.9% 8 mL syringe 1 - 8 mL IV Once in imaging 02/04/2024 Active Active Problems Problem Noted Date Diagnosed Date Hyperlipidemia 04/15/2023 Essential hypertension 04/02/2020 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/02/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 04/02/2020 Dyspnea Encounters Date Type Department Care Team Description 07/21/2024 9:01 AM JOINT MACHINE OPERATOR - 07/21/2024 11:59 PM JOINT MACHINE OPERATOR Hospital Encounter [facility] Bldg 1 Breast [facility] [address] [place] [id number] Anastacio Schultz MD Mammogram abnormal Discharge Disposition: Discharge to home or self care 07/17/2024 Telephone [facility] Cardiology [address] [place] [address] [facility] 8th [place] [address] [place] [address] Go Lopez MD 07/14/2024 Telephone [facility] Cardiology [address] [place] [address] [facility] 8th [place] [address] [place] [address] Go Lopez MD from Last 3 Months Surgical History Surgery Date Site/Laterality Comments CARDIAC STENT PLACEMENT 06/07/2019 - 06/06/2020 BREAST BIOPSY 06/07/2015 - 06/06/2016 HYSTERECTOMY 06/07/2010 - 06/06/2011 EYE SURGERY 06/07/1972 - 06/06/1973 Right EYE SURGERY 06/07/1975 - 06/06/1976 Left BREAST BIOPSY 07/21/2024 Left Medical History Medical History Date Comments Raynaud disease Takayasu's arteritis (HCC) Hyperlipidemia 04/15/2023 Essential hypertension 04/02/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 04/02/2020 Family History Medical History Relation Name Comments Diabetes Brother Diabetes Father Hypertension Father Cancer Mother Heart attack Mother Relation Name Status Comments Brother Father Mother Social History Tobacco Use Types Packs/Day Years Used Date Smoking Tobacco: Never Smokeless Tobacco: Never Tobacco Cessation:Counseling Given: Not Answered Personal Safety Answer Date Recorded Have you ever been in or are you currently in a harmful physical or emotional relationship or is someone making you feel afraid or unsafe? Denies 02/21/2024 Comments No Sex and Gender Information Value Date Recorded Sex Assigned at Not on file Legal Sex Female 8:55 PM JOINT MACHINE OPERATOR Gender Identity Not on file Sexual Orientation Not on file Obstetrics History Para Term AB IAB SAB Ectopic Multiple Livin g Live Births 2 2 2 Date Outcome GA Total Labor Labor/2nd/3rd Weight Sex Type Anes PTL Sharee A1 A5 Name Clin Term Term Last Filed Vital Signs Vital Sign Reading Time Taken Comments Blood Pressure 114/73 04/04/2024 4:00 PM CDT Pulse 75 04/04/2024 4:00 PM CDT Temperature 36.6 C (97.9 F) 04/04/2024 4:00 PM CDT Respiratory Rate - - Oxygen Saturation 94% 02/04/2024 3:05 PM CDT Inhaled Oxygen Concentration - - Weight 84.9 kg (187 lb 3.2 oz) 04/04/2024 4:00 P M CDT Height 172.7 cm (5' 8 ) 04/04/2024 4:00 PM CDT Body Mass Index 28.46 04/04/2024 4:00 PM CDT Plan of Treatment Upcoming Encounters Date Type Department Care Team (Latest Contact Info) Description 10/05/2024 9:00 AM CDT Hospital Encounter [facility] [address] [place], [place] [phone] Anastacio Schultz MD [address] [place] [address] [phone] 10/05/2024 9:00 AM CDT - 10/05/2024 10:20 AM CDT Surgery [facility] [address] [place] [phone] Anastacio Schultz MD [address] [place] [address] [phone] EXCISIONAL LEFT BREAST BIOPSY WITH NEEDLE LOCALIZATION X2 Scheduled Procedures Name Priority Associated Diagnoses Date/Ti me BIOPSY BREAST NEEDLE LOCALIZATION ATYPICAL DUCTAL HYPERPLASIA LEFT BREAST 10/05/2024 9:00 AM CDT Health Maintenance Due Date Last Done Comments Colon Cancer Screening-Colonoscopy 1965 Depression Screening 1965 DTaP/Tdap/Td Vaccine (1 - Tdap) 1978 Hepatitis B Screening 1985 Regular Well Visit/Exam 18-64 1985 Pneumococcal vaccine <65 (1 of 2 - PCV) 1986 Zoster Vaccine (1 of 2) 1986 Covid-19 Vaccine (3 - Modern a risk series) 09/17/2020 08/20/2020, 07/18/2020 Influenza Vaccine (Season Ended) 2025 Breast Cancer Screening-Mammogram 06/14/2025 06/14/2024, 05/25/2023, 05/21/2022, Additional history exists Hepatitis C Screening Completed 01/05/2020 Medical Devices Implanted Type Area Fisher Purse Seine Device Identifier Shelf Expiration Date Model / Serial / Lot [employer] Eviva 13cm Identifier Biopsy Site [id number] - [id number] Implanted:Qty: 1 on 07/21/2024 by Anastacio Schultz MD at [facility] [employer] [id number] 08/09/2024 SMARK-RAJAT VA-13 / / [id number] [employer] Securmark 13cm Rigid End Bioabsorbable Net Top Hearing Instrument Specialist Breast Latex Free [id number]-13 - [id number] Implanted:Qty: 1 on 07/21/2024 by Anastacio Schultz MD at [facility] [employer] [id number] 01/11/2025 SMARK-RAJAT VA-2S-13 / / [id number] Procedures Procedure Name Priority Date/Time Associated Diagnosis Comments STEREOTACTIC BREAST BIOPSY LEFT Schedule Routine, Read Routine (OP Routine) 07/21/2024 10:32 AM JOINT MACHINE OPERATOR Mammogram abnormal SURGICAL PATHOLOGY Routine 07/21/2024 9: 54 AM JOINT MACHINE OPERATOR Mammogram abnormal SCREENING MAMMOGRAM BILATERAL W SILVANO Schedule Routine, Read Routine (OP Routine) 06/14/2024 1:42 PM JOINT MACHINE OPERATOR Screening mammogram, encounter for HEPATITIS C ANTIBODY Routine 01/05/2020 2:58 PM CDT Vasculitis from Last 3 Months or Most Recently Relevant to Health Maintenance Results * Stereotactic Breast Biopsy Left (07/21/2024 10:32 AM JOINT MACHINE OPERATOR) Anatomical Region Laterality Modality Breast Left Mammography 07/21/2024 10:4 9 AM JOINT MACHINE OPERATOR Narrative 07/21/2024 10:52 AM JOINT MACHINE OPERATOR EXAM DESCRIPTION: STEREOTACTIC BREAST BIOPSY LEFT REASON FOR STUDY: Left breast calcification groups x2 COMPARISON: 06/21/2024, 06/14/2024 BREAST COMPOSITION: There are scattered areas of fibroglandular density. TECHNIQUE/FINDINGS: Images were submitted from a left breast stereotactic biopsy performed by Dr. Schultz and evaluated at the time of the dictation. The radiologist was not present during the procedure. FINDINGS: Submitted images demonstrate calcifications within both submitted biopsy specimens (one specimen radiograph from each biopsy site). For full details, please refer to the procedure report. Post procedural mammography demonstrates both biopsy marking clips in expected position at the biopsy sites . IMPRESSION: 1. Images obtained during a left breast stereotactic biopsy x2. Post-procedure mammogram demonstrates both biopsy marking clips in expected position at the biopsy sites . Please refer to separate procedure report for full details of the procedure. 2. Radiologic-pathologic correlation is recommended. THIS IS AN ELECTRONICALLY VERIFIED FINAL REPORT 07/21/2024 10:52 AM - Electronically signed by Jorje Lay M.D., MD: Report ID: [id number] [facility] Anast[facility] Schultz MD IMG MAMMO PROCEDURES Final Res ult * Surgical pathology (07/21/2024 9:54 AM JOINT MACHINE OPERATOR) Tissue specimen (specimen) (Breast, capsular tissue) 07/21/2024 9:54 AM JOINT MACHINE OPERATOR Comment:Stereotactic breast biopsy Tissue specimen (specimen) (Breast, capsular tissue) 07/21/2024 10:08 AM JOINT MACHINE OPERATOR Comment:Stereotactic breast biopsy Narrative PATHOLOGY TEMP LLB FOR ASP - 07/26/2024 4:12 PM JOINT MACHINE OPERATOR [facility] Department of Pathology [address] [place] [address] Note to Patients: This report may contain a detailed description of human tissue sent by a health care provider to the laboratory for pathologic evaluation. The content of this report is essential for diagnosis and may provide important critical findings. This information may be unfamiliar to patients to review without a medical professional present. It is advised that the patient review this report in the presence of a health care provider who can answer questions and explain the details. Final Report Patient Name: FRANCISCO JAVIER GONZALEZ : 1965 (Age: 58) Gender: F Address: [address] [place] [address] Hospital #: [id number] Service: DEFAULT Location: Patient Type: [facility] ANCILLARY Taken: 07/21/2024 Received: 07/21/2024 Accessioned: 07/21/2024 Reported: 07/26/2024 Physician(s): Renita Mariscal P.A. Diagnosis: A. Breast, left, superior, core biopsy - At least atypical ductal proliferation with secretory change (see comment) - Associated calcifications B. Breast, left, inferior, core biopsy - At least atypical ductal proliferation with secretory change (see comment) - Associated calcifications Kalpana Campos MD Report Electronically Reviewed and Signed Out By Kalpana Campos MD 07/26/2024 16:12:10 Specimen(s) Received: A: Left breast calcifications/superior/cylinder clip/sbb B: Left breast calcifications/inferior/tophat clip/sbb Microscopic Description: Part A and B: Both biopsy specimens show calcifications associated with an atypical ductal proliferation characterized by dilated and mildly enlarged ducts lined by hobnailed cells with moderate to marked nuclear atypia. Scattered mitotic figures are identified. Focally the glands demonstrate architectural complexity including micropapillae and tufting. For further characterization, immunohistochemical stains (single antibody procedures with appropriate controls) were performed which show the foci of interest to be positive for ER while negative for CK5/6. While these features are concerning, the morphology in association with secretory change does not reach the diagnostic threshold for DCIS. The proliferation is best characterized as at least atypical with excision recommended. This case was reviewed with Dr. Jemma Blood and Dr. Ban Johnson who agree with the diagnosis. Part A and B: Both biopsy specimens show calcifications associated with an atypical ductal proliferation characterized by dilated and mildly enlarged ducts lined by hobnailed cells with moderate to marked nuclear atypia. Scattered mitotic figures are identified. Focally the glands demonstrate architectural complexity including micropapillae and tufting. For further characterization, immunohistochemical stains (single antibody procedures with appropriate controls) were performed which show the foci of interest to be positive for ER while negative for CK5/6. While these features are concerning, the morphology in association with secretory change does not reach the diagnostic threshold for DCIS. The proliferation is best characterized as at least atypical with excision recommended. This case was reviewed with Dr. Jemma Blood and Dr. Ban Johnson who agree with the diagnosis. Clinical History: The patient is a 58-year-old woman with history of left breast calcifications. Operative Procedure: Stereotactic left breast biopsy x2. Gross Description Received in two formalin jars labeled with the patient's identifiers. A. Labeled left breast calcifications/superior/cylinder clip/SBB are multiple cores and fragments of fibrofatty tissue (2.5 x 2.5 x 0.2 cm in aggregate). Multiple cores are received within a tissue cassette and are submitted labeled A 1 to A3. The remaining cores are labeled A4. Jar 0. Cold ischemia time = 27 minutes. Formalin fixation time = 56 hours. B. Labeled left breast calcification/inferior/top hat clip/SBB are multiple cores and fragments of fibrofatty tissue all received within a tissue cassette. Submitted entirely labeled B1 to B4. Jar 0. Cold ischemia time = 13 minutes. Formalin fixation time = 56 hours. [email or web address]/07/21/2024 12:56 Moira Taylor MS, PA (A Microscopic slide review and interpretation for this case was performed at [facility], Department of Surgical Pathology, [address] [facility] [id number], [place] [address] CLIA # [id number] Anastacio Schultz MD LAB PATHOLOGY ORDERABLES Final Result PATHOLOGY TEMP LLB FOR ASP * (ABNORMAL) Screening Mammogram Bilateral [place] (06/14/2024 1:42 PM JOINT MACHINE OPERATOR) Anatomical Region Laterality Modality Breast Bilateral Mammography Impressions 06/14/2024 1:59 PM JOINT MACHINE OPERATOR BI-RADS ATLAS category (overall): 0 - Incomplete: Needs Additional Imaging Evaluation 1. Indeterminate left breast calcifications as above. Further evaluation with diagnostic left mammography is recommended. 2. No mammographic evidence of malignancy in the right breast. Routine screening mammography of the right breast is recommended in 1 year. The patient has been or will be contacted. Narrative 06/14/2024 1:59 PM JOINT MACHINE OPERATOR Screening Mammogram Bilateral W [place]: 06/14/24 The study was acquired using full field digital technology and interpreted from soft copy. 2D digital mammographic views, as well as 3D digital tomosynthesis were performed in the CC and MLO projections. CLINICAL: Screening mammogram, encounter for. No relevant medical history has been documented for this patient. No known family history of breast cancer. COMPARISONS: 05/25/2023 Screening Mammogram Bilateral W [place] 05/21/2022 Screening Mammogram Bilateral [place] 04/28/2021 Screening Mammogram Bilateral [place] 01/05/2020 Screening Mammogram Bilateral [place] BREAST TISSUE: There are scattered areas of fibroglandular density. FINDINGS: Postoperative changes are redemonstrated in the upper outer left breast, posterior depth. Associated coarse calcifications at the surgical site are consistent with benign fat necrosis. More subtly calcifications in the upper outer left breast, middle depth, may have possibly increased and are indeterminate. There is no new suspicious finding in the right breast on mammogram. us Self Screening Mammogram IMG MAMMO PROCEDURES Fi nal Result * Hepatitis C antibody (01/05/2020 2:58 PM CDT) Hep C Ab Nonreactive Nonreactive ISABEL DORSEY Comment:Antibodies to HCV no t detected. Does NOT exclude the possibility of recent exposure to HCV. Blood specimen (specimen) 01/05/2020 2:58 PM CDT 01/05/2020 3:10 PM CDT us Ashok Lantigua MD LAB MICROBIOLOGY - GENERAL OR DERABLES Edited Result - Final [facility] Department [place] [address] from Last 3 Months or Most Recently Relevant to [place] [address] [facility] [place] [address] [facility] [employer] [facility] Care Teams Press Leader Relationship Specialty Start Date End Date Ashok Lantigua MD [facility] [address] [place] [address] PCP - General Rheumatology 09/28/24 Kashif Bailey MD Referring Physician Cardiovascular Disease 03/07/20
--- OUTSIDE RECORDS SUMMARY | 2024-10-02 00:51 | XMS_ITS | Data Portability ---
Author Organization [facility] [employer], Main Office Address [address] [place] [address] Assessment No assessment recorded. Plan of Treatment Reminders Order Date Submit Date Provider Last Modified By Organization Details Last Modified Time Details Appointments None recorded. Lab TSH + free T4, serum 2022 023 [employer] [facility], [address], [address], [place], [address], 3 04:18:15 CMP, serum or plasma 2022 023 [employer] [facility], [address], [place], [address], 3 04:18:17 CBC w/ auto diff 2022 023 [employer] [facility], [address], [place], [address], 3 04:18:20 vitamin B12 + folate, serum or blood 2022 023 [employer] [facility], [address], [place], [address], 3 04:18:22 lipid panel, serum 2022 023 [employer] [facility], [address], [place], [address], 3 04:18:16 HbA1c (hemoglobi n A1c), blood 2022 023 [employer] [facility], [address], [place], [address], 3 04:18:18 magnesium, serum or plasma 2022 023 [place] [employer] [facility], [address], [place], [address], 3 04:18:19 iron + TIBC + ferritin, serum 2022 023 [place] [employer] [facility], [address], [place], [address], 3 04:18:13 Referral None recorded. Procedures None recorded. Surgeries None recorded. Imaging MAMMO, screening, digital, bilateral 2022 023 [facility] [place], [address] [place] [address], [address], 3 10:49:58 Medication Orders bupropion HCl XL 150 mg 24 hr tablet, extended release 2022 023 [email or web address] [id number], [address], [place], [place], [id number], 3 18:37:35 Patient TargetsNo targets recorded. Patient InstructionsNo instructions recorded. Reason for Referral None Reported. Results Created Date Observation Date Name Description Value Unit Range Abnormal Flag Note LastModifiedBy Organization Detail LastModifiedTime 05/04/2005/05/2023 IRON, TIBC AND LUCY TIN PANEL iron, total 89 mcg/d L 45-160 normal Not Available [facility] [address] [place], [address], 05/05/2023 04:18:13 05/04/20 23 05/05/2023 IRON, TIBC AND LUCY TIN PANEL iron binding capacity 320 mcg/d L_(ca lc) 250-45 0 normal Not Available [facility] [address] [place], [address], 05/05/2023 04:18:13 05/04/20 23 05/05/2023 IRON, TIBC AND LUCY TIN PANEL % saturation 28 %_(ca lc) 16-45 normal Not Available [address], [address], 05/05/2023 04:18:13 05/04/20 23 05/05/2023 IRON, TIBC AND LUCY TIN PANEL ferritin 22 NG/mL 16-232 normal Not Available [address], [address], 05/05/2023 04:18:13 05/04/20 23 05/05/2023 TSH+F REE T4 TSH 1.96 mIU/L normal Refer ence Range > or = 20 Years 0.40- 4.50 Pregn maribell Range s First trime ster 0.26- 2.66 Secon d trime ster 0.55- 2.73 Third trime ster 0.43- 2.91 Not Available [address], [address], 05/05/2023 04:18:15 05/04/20 23 05/05/2023 TSH+F REE T4 T4, free 1.0 NG/dL 0.8-1. 8 normal Not Available [address], [address], 05/05/2023 04:18:15 05/04/20 23 05/05/2023 LIPID PANEL WITH RATIO S cholesterol, total 144 mg/dL <200 normal Not Available [address], [address], 05/05/2023 04:18:16 05/04/20 23 05/05/2023 LIPID PANEL WITH RATIO S HDL cholesterol 73 mg/dL > or = 50 normal Not Available [address], [address], 05/05/2023 04:18:16 05/04/20 23 05/05/2023 LIPID PANEL WITH RATIO S triglyceride s 63 mg/dL <150 normal Not Available [address], [address], 05/05/2023 04:18:16 05/04/20 23 05/05/2023 LIPID PANEL WITH RATIO S LDL-choleste rol 57 mg/dL _(xavi c) normal Refer ence range : <100 Petty able range <100 mg/dL for prima ry preve ntion ; <70 mg/dL for patie nts with CHD or diabe tic patie nts with > or = 2 CHD risk facto rs. LDL-C is now calcu lated using the Lida n-Hop kins raquelu radha n, which is a valid ated novel raj solis accur acy than the Fried wei equat ion in the estim ation of LDL-C . Lida michel SS et al. LINO. 2013; 310(1 9): 2061- 2068 (http ://ed ucati on.Qu Dawn Cervilenz. com/f aq/FA Q164) Not Available [address] [address] [place], [address], 05/05/2023 04:18:16 05/04/2005/05/2023 LIPID PANEL WITH RATIO S chol/HDLC ratio 2.0 (calc ) <5.0 normal Not Available [address], [address], 05/05/2023 04:18:16 05/04/20 23 05/05/2023 LIPID PANEL WITH RATIO S LDL/HDL ratio 0.8 (calc ) Below avera ge Risk: <2.34 [place] ge Risk: 2.35- 4.12 Moder ate Risk: 4.13- 5.56 High Risk: >5.57 Not Available [address] [address] [place], [address], 05/05/2023 04:18:16 05/04/20 23 05/05/2023 LIPID PANEL WITH RATIO S non HDL cholesterol 71 mg/dL _(xavi c) <130 normal For patie nts with diabe kristina plus 1 major ASCVD risk facto r, treat ing to a non-H DL-C goal of <100 mg/dL (LDL- C of <70 mg/dL ) is dulce eddy optio n. Not Available [address] [address] [place], [address], 05/05/2023 04:18:16 05/04/20 23 05/05/2023 COMPR EHENS FLORIDALMA METAB OLIC PANEL glucose 90 mg/dL 65-99 normal Fasti ng refer ence inter angela Not Available [address] [address] [place], [address], 05/05/2023 04:18:17 05/04/20 23 05/05/2023 COMPR EHENS FLORIDALMA METAB OLIC PANEL urea nitrogen (BUN) 16 mg/dL 7-25 normal Not Available [address] [address] [place], [address], 05/05/2023 04:18:17 05/04/20 23 05/05/2023 COMPR EHENS FLORIDALMA METAB OLIC PANEL creatinine 0.94 mg/dL 0.50-1 .03 normal Not Available [address] [address] [place], [address], 05/05/2023 04:18:17 05/04/20 23 05/05/2023 COMPR EHENS FLORIDALMA METAB OLIC PANEL eGFR 72 mL/mi n/1.7 3m2 > or = 60 normal Not Available [address] [address] [place], [address], 05/05/2023 04:18:17 05/04/20 23 05/05/2023 COMPR EHENS FLORIDALMA METAB OLIC PANEL BUN/creatini ne ratio SEE NOTE: (calc ) 6-22 Not Repor zachery: BUN and Creat inine are withi n refer ence range . Not Available [facility] [address] [address] [place], [address], 05/05/2023 04:18:17 05/04/20 23 05/05/2023 COMPR EHENS FLORIDALMA METAB OLIC PANEL sodium 142 mmol/ L 135-14 6 normal Not Available [address], [address], 05/05/2023 04:18:17 05/04/20 23 05/05/2023 COMPR EHENS FLORIDALMA METAB OLIC PANEL potassium 4.0 mmol/ L 3.5-5. 3 normal Not Available [address], [address], 05/05/2023 04:18:17 05/04/20 23 05/05/2023 COMPR EHENS FLORIDALMA METAB OLIC PANEL chloride 105 mmol/ L 98-110 normal Not Available [address], [address], 05/05/2023 04:18:17 05/04/20 23 05/05/2023 COMPR EHENS FLORIDALMA METAB OLIC PANEL carbon dioxide 30 mmol/ L 20-32 normal Not Available [address], [address], 05/05/2023 04:18:17 05/04/20 23 05/05/2023 COMPR EHENS FLORIDALMA METAB OLIC PANEL calcium 9.8 mg/dL 8.6-10 .4 normal Not Available [address], [address], 05/05/2023 04:18:17 05/04/20 23 05/05/2023 COMPR EHENS FLORIDALMA METAB OLIC PANEL protein, total 6.5 g/dL 6.1-8. 1 normal Not Available [address], [address], 05/05/2023 04:18:17 05/04/20 23 05/05/2023 COMPR EHENS FLORIDALMA METAB OLIC PANEL albumin 4.3 g/dL 3.6-5. 1 normal Not Available [address] [address] [place], [address], 05/05/2023 04:18:17 05/04/20 23 05/05/2023 COMPR EHENS FLORIDALMA METAB OLIC PANEL globulin 2.2 g/dL_ (calc ) 1.9-3. 7 normal Not Available [address] [address] [place], [address], 05/05/2023 04:18:17 05/04/20 23 05/05/2023 COMPR EHENS FLORIDALMA METAB OLIC PANEL albumin/glob ulin ratio 2.0 (calc ) 1.0-2. 5 normal Not Available [address] [address] [place], [address], 05/05/2023 04:18:17 05/04/20 23 05/05/2023 COMPR EHENS FLORIDALMA METAB OLIC PANEL bilirubin, total 0.8 mg/dL 0.2-1. 2 normal Not Available [address] [address] [place], [address], 05/05/2023 04:18:17 05/04/20 23 05/05/2023 COMPR EHENS FLORIDALMA METAB OLIC PANEL alkaline phosphatase 38 U/L 37-153 normal Not Available [address] [address] [place], [address], 05/05/2023 04:18:17 05/04/20 23 05/05/2023 COMPR EHENS FLORIDALMA METAB OLIC PANEL AST 19 U/L 10-35 normal Not Available [address] [address] [place], [address], 05/05/2023 04:18:17 05/04/20 23 05/05/2023 COMPR EHENS FLORIDALMA METAB OLIC PANEL ALT 22 U/L 6-29 normal Not Available [address] [address] [place], [address], 05/05/2023 04:18:17 05/04/20 23 05/05/2023 HEMOG LOBIN A1C hemoglobin A1C 5.4 %_of_ total _HGB <5.7 normal For the purpo se of ugo small for the prese nce of diabe kristina: <5.7% Consi stent with the absen ce of diabe kristina 5.7-6 .4% Consi stent with incre ased risk for diabe kristina (pred iabet es) > or =6.5% Consi stent with diabe kristina This assay resul t is consi stent with a decre ased risk of diabe kristina. Curre ntly, no conse nsus exist s xavier kim use of hemog lobin A1c for diagn osis of diabe kristina in child janie. Accor ding to Ameri can Diabe kristina Assoc iatio n (ADA) guide lines , hemog lobin A1c <7.0% repre sents optim al contr ol in non-p regna nt diabe tic patie nts. Diffe rent metri cs may apply to speci fic patie nt popul ation s. Stand ards of Medic al Care in Diabe kristina(A DA). Not Available [facility] [address] [address] [place], [address], 05/05/2023 04:18:18 05/04/20 23 05/05/2023 MAGNE SIUM magnesium 2.0 mg/dL 1.5-2. 5 normal Not Available [facility] [address] [address] [place], [address], 05/05/2023 04:18:19 05/04/20 23 05/05/2023 CBC (INCL UDES DIFF/ PLT) white blood cell count 3.8 thous and/u L 3.8-10 .8 normal Not Available [facility] [address] [address] [place], [address], 05/05/2023 04:18:20 05/04/20 23 05/05/2023 CBC (INCL UDES DIFF/ PLT) red blood cell count 4.20 fernanda on/uL 3.80-5 .10 normal Not Available [address], [address], 05/05/2023 04:18:20 05/04/20 23 05/05/2023 CBC (INCL UDES DIFF/ PLT) hemoglobin 13.5 g/dL 11.7-1 5.5 normal Not Available [address], [address], 05/05/2023 04:18:20 05/04/20 23 05/05/2023 CBC (INCL UDES DIFF/ PLT) hematocrit 41.0 % 35.0-4 5.0 normal Not Available [address], [address], 05/05/2023 04:18:20 05/04/20 23 05/05/2023 CBC (INCL UDES DIFF/ PLT) MCV 97.6 fL 80.0-1 00.0 normal Not Available [address], [address], 05/05/2023 04:18:20 05/04/20 23 05/05/2023 CBC (INCL UDES DIFF/ PLT) MCH 32.1 pg 27.0-3 3.0 normal Not Available [address], [address], 05/05/2023 04:18:20 05/04/20 23 05/05/2023 CBC (INCL UDES DIFF/ PLT) MCHC 32.9 g/dL 32.0-3 6.0 normal Not Available [address], [address], 05/05/2023 04:18:20 05/04/20 23 05/05/2023 CBC (INCL UDES DIFF/ PLT) RDW 12.1 % 11.0-1 5.0 normal Not Available [address], [address], 05/05/2023 04:18:20 05/04/20 23 05/05/2023 CBC (INCL UDES DIFF/ PLT) platelet count 168 thous and/u L 140-40 0 normal Not Available [address], [address], 05/05/2023 04:18:20 05/04/20 23 05/05/2023 CBC (INCL UDES DIFF/ PLT) MPV 10.8 fL 7.5-12 .5 normal Not Available [address], [address], 05/05/2023 04:18:20 05/04/20 23 05/05/2023 CBC (INCL UDES DIFF/ PLT) absolute neutrophils 1683 cells /uL 1500-7 800 normal Not Available [address], [address], 05/05/2023 04:18:20 05/04/20 23 05/05/2023 CBC (INCL UDES DIFF/ PLT) absolute lymphocytes 1566 cells /uL 850-39 00 normal Not Available [address], [address], 05/05/2023 04:18:20 05/04/20 23 05/05/2023 CBC (INCL UDES DIFF/ PLT) absolute monocytes 410 cells /uL 200-95 0 normal Not Available [address], [address], 05/05/2023 04:18:20 05/04/20 23 05/05/2023 CBC (INCL UDES DIFF/ PLT) absolute eosinophils 99 cells /uL 15-500 normal Not Available [address], [address], 05/05/2023 04:18:20 05/04/20 23 05/05/2023 CBC (INCL UDES DIFF/ PLT) absolute basophils 42 cells /uL 0-200 normal Not Available [address], [address], 05/05/2023 04:18:20 05/04/20 23 05/05/2023 CBC (INCL UDES DIFF/ PLT) neutrophils 44.3 % normal Not Available [address], [address], 05/05/2023 04:18:20 05/04/20 23 05/05/2023 CBC (INCL UDES DIFF/ PLT) lymphocytes 41.2 % normal Not Available [address], [address], 05/05/2023 04:18:20 05/04/20 23 05/05/2023 CBC (INCL UDES DIFF/ PLT) monocytes 10.8 % normal Not Available [address], [address], 05/05/2023 04:18:20 05/04/20 23 05/05/2023 CBC (INCL UDES DIFF/ PLT) eosinophils 2.6 % normal Not Available [address], [address], 05/05/2023 04:18:20 05/04/20 23 05/05/2023 CBC (INCL UDES DIFF/ PLT) basophils 1.1 % normal Not Available [address], [address], 05/05/2023 04:18:20 05/04/20 23 05/05/2023 VITAM IN B12/F OLATE , SERUM PANEL vitamin B12 410 pg/mL 200-11 00 normal Not Available [address], [address], 05/05/2023 04:18:22 05/04/20 23 05/05/2023 VITAM IN B12/F OLATE , SERUM PANEL folate, serum 14.5 NG/mL normal Refer ence Range Low: <3.4 Borde rline : 3.4-5 .4 Tania l: >5.4 Not Available [facility] [address] [address], [place], [address], 05/05/2023 04:18:22 05/11/20 23 05/08/2023 XR, hand, 3 or more view No observ ation record ed. [email or web address], [place], [address], 05/12/2023 14:29:59 05/25/20 23 05/25/2023 MAMMO , scree geovanny, digit al, bilat eral No observ ation record ed. [email or web address] [facility] [address] [place], [address], 06/24/2023 15:13:54 Result Notes None recorded. Problems Name Problem SNOMED Code Status Onset Date Resolution Date Notes Provider Name and Address Organization Details Recorded Time Essential hypertensio n 50161023 Active 2022 ASHLEY Woods, [facility] 3 10:22:09 Hyperlipide kristen 39016504 Active 2022 ASHLEY Woods, [facility] 3 10:22:14 Benign essential hypertensio n 0256407 Active 2022 MIESHA Blount [address], [place], [address], [facility] 3 12:08:17 Fatigue 84114325 Active 2022 MIESHA Blount [address], [address], [place], [address], [facility] 3 12:34:40 Bilateral cramp of muscle of lower limbs 0458559564683 9107 Active 2022 MIESHA Blount [address], [address], [place], [address], [facility] [place] [employer] [facility] 12:34:46 Weight gain 5471431 Active 2022 MIESHA Blount [address] [facility], [address] [address], [place], [address], [facility] [email or web address] [facility] [employer] [facility] 12:35:33 Poor focus 282536673 Active 2022 MIESHA Blount [address] [facility], [facility] [address], [place], [address], [facility] [email or web address] [facility] [employer] [facility] 12:36:09 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 Procedures Surgical History None recorded. Imaging Results Imaging Date Name Status LastModified by Organiz ation Details LastModified Time 05/08/2023 XR, hand, 3 or more view completed [address], [place], [address], 05/12/2023 14:29:59 05/25/2023 MAMMO, screening, digital, bilateral completed [email or web address] [facility] [address] [place] [address], [address], 06/24/2023 15:13:54 Procedure Notes None recorded. Medical Equipment None Reported. Allergies Allergen ID Allergen Name Allergen Category Reaction Reaction Severity Criticality Documentation Date Start Date Code Code System Note Provider Name and Address Organization Details Recorded Time 55532 Cipro medicatio n edema Not available Not available 04/19/2023 91986 3 RxBARBER Soto, [facility] [employer] [facility] 11:58:31 37849 sulfameth oxazole / trimethop rim medicatio n edema Not available Not available 04/19/2023 14033 RxEphraim Tyson RN null, [facility] [employer] [facility] 11:58:40 [address]8490 penicilli n V Not available Not available Not available Not available 04/19/2023 7984 RxNorm unkno wn react ion, pt state s she can take amoxi licil ceci. Jasmin Tyson RN null, [place] [employer] [facility] 3 11:59:22 Medications Name Sig Start Date Stop Date Status Note LastModified by Organization Details LastModified Time atorvastati n 40 mg tablet Take 1 tablet every day by oral route for 30 days. active Not Available Not Available No t Available doxycycline hyclate 100 mg capsule 04/16 completed Not Available Not Available Not Available valacyclovi r 1 gram tablet TAKE 1 TABLET BY MOUTH THREE TIMES DAILY FOR 7 DAYS 04/19 completed Not Available Not Available Not Available lisinopril 20 mg tablet Take 1 tablet every day by oral route for 30 days. active Not Available Not Available No t Available isosorbide mononitrate ER 30 mg tablet,exte nded release 24 hr Take 1 tablet by oral route for 30 days. active Not Available Not Available No t Available clopidogrel 75 mg tablet Take 1 tablet every day by oral route for 90 days. active Not Available Not Available No t Available nitroglycer in 0.[address] ONE TABLET UNDER TONGUE NEEDED FOR CHEST PAIN EVERY 5 MINUTES active Not Available Not Available No t Available mupirocin 2 % topical ointment APPLY TOPICALLY TO THE AFFECTED AREA THREE TIMES DAILY FOR 7 DAYS 04/16 completed Not Available Not Available Not Available methylpredn isolone 4 mg tablets in a dose pack FOLLOW PACKAGE DIRECTION S 04/16 completed Not Available Not Available Not Available bupropion HCl XL 150 mg 24 hr tablet, extended release Take 1 tablet every day by oral route in the morning. 2022 active Not Available Not Available Not Avai lable Actemra ACTPen 162 mg/0.9 mL subcutaneou s pen injector active Not Available Not Available Not Available Vitals Date Recorded Body temperature Body weight Body mass index (BMI) Body height Heart rate Oxygen saturation Oxygen saturation in Arterial blood by Pulse oximetry Systolic blood pressure Diastolic blood pressure Provider Name and Address Organization Details Last Updated DateTime 3 97.4 [degF] 55365.5 9 g 28.1 kg/m2 172.72 cm 78 /min 97 % 97 % 128 mm[Hg] 70 mm[Hg] Jasmin Tyson RN [employer] 12:02:30 Date Recorded Systolic blood pressure Diastolic blood pressure Provider Name and Address Organization Details Last Updated DateTime 04/19/2023 80 mm[Hg] 60 mm[Hg] MIESHA Blount [address] [facility], [facility] [address], [place], [address], [employer] 04/19/2023 12:37:40 Social History Question Answer Notes LastModified by Organizat ion Details LastModified Time Tobacco Smoking Status Never Smoker Jasmin Tyson RN null, [employer] 04/19/2023 11:52:01 What Is Your Level Of Alcohol Consumption? Occasional [email or web address] Information not available 04/19/2023 What Is Your Level Of Caffeine Consumption? Moderate [email or web address] Information not available 04/19/2023 In The 14 Days Before Symptom Onset, Have You Had Close Contact With A Laboratory-confir med COVID-19 While That Case Was Ill? No [email or web address] Information not available 04/16/2023 In The 14 Days Before Symptom Onset, Have You Had Close Contact With A Person Who Is Under Investigation For COVID-19 While That Person Was Ill? No [email or web address] Information not available 04/16/2023 Are You Currently Employed? Yes [email or web address] Information not available 04/19/2023 What Type Of Diet Are You Following? REGULAR [email or web address] Information not available 04/19/2023 What Is The Highest Grade Or Level Of School You Have Completed Or The Highest Degree You Have Received? 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 No [email or web address] Information no t available 04/19/2023 How Many Children Do You Have? 1 [email or web address] Information not available 04/19/2023 What Is Your Relationship Status? [email or web address] Information not available 04/19/2023 Do You Use Your Seat Belt Or Car Seat Routinely? Yes [email or web address] Information not available 04/19/2023 Do You Have Smoke And Carbon Monoxide Detectors In Your Home? Yes [email or web address] Information not available 04/19/2023 Are You Passively Exposed To Smoke? No [email or web address] Information no t available 04/19/2023 Are There Any Smokers In Your House? No [email or web address] Information not available 04/19/2023 Do You Feel Stressed (tense, Restless, Nervous, Or Anxious, Or Unable To Sleep At Night)? [id number] [email or web address] Information not available 04/19/2023 Do You Use Any Illicit Or Recreational Drugs? No [email or web address] Information not available 04/19/2023 Do You Use Sunscreen Routinely? Yes [email or web address] Information not available 04/19/2023 Have You Recently Traveled Abroad? No [email or web address] Information not available 04/16/2023 Do You Have Any Dietary Restrictions? No [email or web address] Information not available 04/19/2023 Do You Or Have You Ever Used Any Other Forms Of Tobacco Or Nicotine? No [email or web address] Information not available 04/19/2023 Sex: Unknown Functional Status Question Answer Note LastModified by Contract Cloud ion Details LastModified Time What is your exercise level? Occasional [email or web address] Information not available 04/19/2023 Mental Status None recorded. Family History Relationship Description Onset Age of this Age Resolved Age Notes LastModified by Organization Details LastModified Time Mother Malignant neoplasm of lung [email or web address] Not available 12:43:42 Father Diabetes mellitus [email or web address] Not available 12:44:09 Father Hypertensive disorder [email or web address] Not available 12:44:21 Medical History No medical history recorded. Gynecological HistoryNo gynecological history recorded. Obstetrics History GPAL:G 2 P 0 0 0 2 Type Value Living 2 Total 2 Past Encounters Encounter ID Performer Location Encounter Start Date Encounter Closed Date Diagnosis/Indication Diagnosis SNOMED-CT Code Diagnosis ICD10 Code Diagnosis Note [id number] MIESHA Blount [facility] [place] [address] [place] [address] 04/19/2023 11:44:50 04/19/2023 12:39:52 Adult health examination 680913358 Z00.01 new pt well exam completed Benign ess ential hypertension 7703779 I10 stable on lisinopril 20mg daily. Hyperlipidemia 90044182 E78.5 fasting lipid panel for baseline evaluation . .she is on atorvastat in 40mg daily. Long-term drug therapy 621513676 Z79.899 routine cbc, cmp and b12, folate ordered Bilateral cramp of muscle of lower limbs 7812943924 9617655 R25.2 pt c/o of cramps in the lower legs. check iron studies and magnesium labs Diabetes m ellitus screening 563449520 Z13.1 a1c screening ordered Weight gain 4807614 R63. 5 Thyroid panel ordered. Screening mammography 24 391208 Z12.31 mammogram due Poor focus 832795386 H52 .7 trial of wellbutrin XL 150mg daily. 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 on isosorbide mononitrat e ER 30mg daily , plavix 75mg daily Health Concerns Section Related Observation LastModified by Organization Detai ls LastModified Time None Recorded Concern Status LastModified by Organization Details LastModified Time None Recorded Advance Directives Directive None Recorded Payers Encounter Date Sequence Insurance Name Policy Number Policy Krause Covered Member ID Krause Member ID Guarantor Name 04/19/2023 1 [facility]: [employer] ([employer]O) 112 Dana Gonzalez [id number] Dana Gonzalez Notes Date Note Type Note Provider Name and Address Organization Details Recorded Time 04/19/20 23 text/htm l HyperlipidemiaReported bypatient.Control:usually well controlled; improving; at goal Compliance:compliant; compliant with diet; exercises Complications:no coronary artery disease; no peripheral artery disease; no cardiovascular diseaseHypertensionReported bypatient.Onset/Timing:better Associated Symptoms:no shortness of breath; no fatigue; no palpitations; no decline in exercise capacity; no snoring new pt apptwellness MIESHA Blount [address] [facility], [facility] [address], [place], [address], [facility] [employer] 05/02/2023 18:41:21 OBGyn Episode No OBEpisode recorded.
--- OUTSIDE RECORDS SUMMARY | 2024-10-02 00:51 | XMS_ITS | Encounter Summary ---
Author Organization [facility] Address [address] [place] [address] Phone Care Team Providers Care Magneto Repairer Name Role Phone Misbah Gan MD Primary Care Provider [phone] Kashif Bailey MD Unavailable [phone] Miladys Rocha Primary Care Pr ovider Ashok Lantigua MD Primary Care Provider [phone] Encounter Details Date Type Department Care Team (Latest Contact Info) Description 12/13/2019 Orders Only [facility] Scanning, Provider Social History Tobacco Use Types Packs/Day Years Used Date Smoking Tobacco: Never Assessed Comments Unknown Sex and Gender Information Value Date Recorded Sex Assigned at Not on file Legal Sex Female 8:55 PM SENIOR ADMINISTRATOR SUPPORT Gender Identity Not on file Sexual Orientation Not on file documented as of this encounter Plan of Treatment Upcoming Encounters Date Type Department Care Team (Latest Contact Info) Description 10/05/2024 9:00 AM CDT Hospital Encounter [facility] OR [facility] [place], [place] [id number] Anastacio Schultz MD [address] [place] [address] 10/05/2024 9:00 AM CDT - 10/05/2024 10:20 AM CDT Surgery [facility] OR [address] [place] [address] Anastacio Schultz MD [address] [facility] [address] [place] [address] EXCISIONAL LEFT BREAST BIOPSY WITH NEEDLE LOCALIZATION X2 Scheduled Procedures Name Priority Associated Diagnoses Date/Ti me BIOPSY BREAST NEEDLE LOCALIZATION ATYPICAL DUCTAL HYPERPLASIA LEFT BREAST 10/05/2024 9:00 AM CDT documented as of this encounter Procedures Procedure Name Priority Date/Time Associated Diagnosis Comments CARDIOLOGY DOCUMENT SCAN 12/13/2019 documented in this encounter Results * CARDIOLOGY DOCUMENT SCAN (12/13/2019) Anatomical Region Laterality Modality Other us Provider Scanning CV CARDIAC SERVICES PROCEDURES Final Result documented in this encounter Visit Diagnoses Not on filedocumented in this encounter Care Teams Magneto Repairer Relationship Specialty Start Date End Date Misbah Gan MD [address] [facility] [address] [place] [address] PCP - General 01/03/19 05/18/23 Miladys Rocha PA [address] [facility] [address] [place] [address] PCP - General Physician Tax Accounting Assistant 05/19/23 09/27/24 Ashok Lantigua MD [address] [place] [address] PCP - General Rheumatology 09/28/24 Kashif Bailey MD [address] [facility] [address] [place] [address] Referring Physician Cardiovascular Disease 03/07/20 documented as of this encounter
--- OUTSIDE RECORDS SUMMARY | 2024-10-02 00:51 | XMS_ITS | Clinical Summary ---
Author Organization [facility] Address [address] [place] [address] Care Team Providers Care Ticket Speculator Name Role Phone Unavailable Primary Care Provider Unavailabl e Source Comments [facility],non-owned Affiliates and Associated Physician Practices is amultiple site organization consisting of ambulatory clinics and hospital sitesin [place], [place], [place] and [place]. This disclosure is being madepursuant to the Care Everywhere program and may not contain all information available regarding this patient. Last updated 18.[facility] Allergies Active Allergy Reactions Criticality Noted Date Comments Ciprofloxacin 04/04/2016 Penicillins 04/04/2016 Sulfamethoxazole W-Trimethoprim 03/08 Medications * Be aware that medications may not be up to date on this document. Alwaysverify current medications with the patient. fluticasone propionate (FLONASE) 50 MCG/ACT nasal spray [place] 2 Sprays into each nostril once daily 1 Bottle 04/04/2016 Active Social History Tobacco Use Types Packs/Day Years Used Date Smoking Tobacco: Never Assessed Comments Unknown Sex and Gender Information Value Date Recorded Sex Assigned at Not on file Legal Sex Female 9:54 AM CDT Gender Identity Not on file Sexual Orientation Not on file Last Filed Vital Signs Vital Sign Reading Time Taken Comments Blood Pressure 122/74 04/04/2016 10:09 AM CDT Pulse 80 04/04/2016 10:09 AM CDT Temperature 36.7 C (98.1 F) 04/04/2016 10:09 AM CDT Respiratory Rate 18 04/04/2016 10:09 AM CDT Oxygen Saturation 98% 04/04/2016 10:09 AM CDT Inhaled Oxygen Concentration - - Weight 74.8 kg (165 lb) 04/04/2016 10:09 AM CDT Height 172.7 cm (5' 8 ) 04/04/2016 10:09 AM CDT Body Mass Index 25.09 04/04/2016 10:09 AM CDT Plan of Treatment Health Maintenance Due Date Last Done Comments COLOGUARD (AGES 45-75) - COL ON CA SCREENING 1967 COLON MONITORING 1967 COLONOSCOPY - COLON CA SCREENING 1967 CT COLONOGRAPHY - COLON CA SCREENING 1967 Colorectal Cancer Screening 1967 FIT - COLON CA SCREENING 1967 FLEX SIG - COLON CA SCREENING 1967 LIPID TESTING 1967 MAMMOGRAM 1967 PAP SMEAR 1967 HIV SCREENING 1982 HEPATITIS C SCREENING 07/30/1985 DTAP/TDAP/TD VACCINES (1 - Tdap) 1986 HEPATITIS B VACCINE (1 of 3 - 19+ 3-dose series) 1986 PNEUMOCOCCAL VACCINE 50+ (1 of 1 - PCV) 2017 ZOSTER VACCINE (1 of 2) 2017 COVID-19 VACCINE (1 - 2023-2 5 season) 2024 DEPRESSION SCREENING 06/07/2024 INFLUENZA VACCINE (Season Ended) 2025 HIB VACCINE Aged Out No longer eligi ble based on patient's age to complete this topic HPV VACCINE Aged Out No longer eligi ble based on patient's age to complete this topic MENINGOCOCCAL (Group B) VACC INE SHARED DECISION-MAKING Aged Out No longer eligibl e based on patient's age to complete this topic MENINGOCOCCAL GROUPS A/C/Y/W VACCINE Aged Out No longer eligible b ased on patient's age to complete this topic Insurance ANTHEM ANTHEM
--- OUTSIDE RECORDS SUMMARY | 2024-10-02 00:51 | XMS_ITS | Referral Summary ---
Author Organization [facility] Address [facility] [place] [address] Care Team Providers Care Audiovisual Lead Technician Name Role Phone Kashif Bailey MD Unavailable [phone] Ashok Lantigua MD Primary Care Provider [phone] Encounters Date Type Department Care Team Description 07/21/2024 9:01 AM MACHINE RIVETER - 07/21/2024 11:59 PM MACHINE RIVETER Hospital Encounter [facility] Medical Office Bldg 1 Breast [facility] [address] [place] [address] [place] [address] Anastacio Schultz MD Mammogram abnormal Discharge Disposition: Discharge to home or self care 07/17/2024 Telephone [facility] Cardiology [address] [place] [address] [place] [address] [place] [address] Go Lopez MD 07/14/2024 Telephone [facility] Cardiology [address] [place] [address] 8th [place] [address] [place] [address] Go Loepz MD from Last 3 Months Allergies Active Allergy Reactions Criticality Noted Date [...] arteritis 04/02/2020 Coronary artery disease invo lving [place] coronary artery of [place] heart without angina pectoris 04/02/2020 Dyspnea Social History Tobacco Use Types Packs/Day Years [...] on file Legal Sex Female 8:55 PM MACHINE RIVETER Gender Identity Not on file Sexual Orientation [...] 10/05/2024 9:00 AM CDT Hospital Encounter [facility] OR [address] [place] [address] Anastacio Schultz MD [address] [place] [address] 10/05/2024 9:00 AM CDT - 10/05/2024 10:20 AM CDT Surgery [facility] OR [address] [place] [address] Anastacio Schultz MD [address] [place] [address] EXCISIONAL LEFT BREAST BIOPSY WITH NEEDLE LOCALIZATION X2 Scheduled Procedures Name Priority Associated Diagnoses Date/Ti me BIOPSY BREAST NEEDLE LOCALIZATION ATYPICAL DUCTAL HYPERPLASIA LEFT BREAST 10/05/2024 9:00 AM CDT Medical Devices Implanted Type Area Rehab Specialist Device Identifier Shelf Expiration Date Model / Serial / Lot [employer] Eviva 13cm Identifier Biopsy Site [id number] - [id number] Implanted:Qty: 1 on 07/21/2024 by Anastacio Schultz MD at [facility] [employer] [id number] 08/09/2024 MOJGAN-RAJAT VA-13 / / [id number] [employer]mark 13cm Rigid End Bioabsorbable Net Top Director Radio Breast Latex Free [id number] - [id number] Implanted:Qty: 1 on 07/21/2024 by Anastacio Schultz MD at [facility] Breast [employer] [id number] 01/11/2025 SMARK-RAJAT VA-2S-13 / / [id number] Procedures Procedure Name Priority Date/Time Associated Diagnosis Comments STEREOTACTIC BREAST BIOPSY LEFT Schedule Routine, Read Routine (OP Routine) 07/21/2024 10:32 AM MACHINE RIVETER Mammogram abnormal SURGICAL PATHOLOGY Routine 07/21/2024 9: 54 AM MACHINE RIVETER Mammogram abnormal SCREENING MAMMOGRAM BILATERAL W SILVANO Schedule Routine, Read Routine (OP Routine) 06/14/2024 1:42 PM MACHINE RIVETER Screening mammogram, encounter for HEPATITIS C ANTIBODY Routine 01/05/2020 2:58 PM CDT Vasculitis from Last 3 Months or Most Recently Relevant to Health Maintenance Results * Stereotactic Breast Biopsy Left (07/21/2024 10:32 AM MACHINE RIVETER) Anatomical Region Laterality Modality Breast Left Mammography 07/21/2024 10:4 9 AM MACHINE RIVETER Narrative 07/21/2024 10:52 AM MACHINE RIVETER EXAM DESCRIPTION: STEREOTACTIC BREAST BIOPSY LEFT REASON [...] AM - Electronically signed by Jorje Lay M.D. MD: Report ID: [id number] Reading Location: [facility] Anastacio Schultz MD IM MAMMO PROCEDURES Final Res ult * Surgical pathology (07/21/2024 9:54 AM MACHINE RIVETER) Tissue specimen (specimen) (Breast, capsular tissue) 07/21/2024 9:54 AM MACHINE RIVETER Comment:Stereotactic breast biopsy Tissue specimen (specimen) (Breast, capsular tissue) 07/21/2024 10:08 AM MACHINE RIVETER Comment:Stereotactic breast biopsy Narrative PATHOLOGY TEMP LLB FOR ASP - 07/26/2024 4:12 PM MACHINE RIVETER [facility] Department of Pathology [address] [place] [address] Note to Patients: This report may contain [...] : 1965 (Age: 58) Gender: F Address: [address] [place] [address] Hospital #: [id number] Service: DEFAULT Location: Patient Type: [facility] ANCILLARY Taken: 07/21/2024 Received: 07/21/2024 Accessioned: 07/21/2024 [...] minutes. Formalin fixation time = 56 hours. [facility]/07/21/2024 12:56 Moira Taylor MS, PA (A Microscopic slide review and interpretation for this case was performed at [facility], Department of Surgical Pathology, [address] [facility] [address], [id number], [place] [address] CLIA # [id number] us Anastacio Schultz MD LAB PATHOLOGY ORDERABLES Final Result PATHOLOGY TEMP LLB FOR ASP * (ABNORMAL) Screening Mammogram Bilateral W Silvano (06/14/2024 1:42 PM MACHINE RIVETER) Anatomical Region Laterality Modality Breast Bilateral Mammography Impressions 06/14/2024 1:59 PM MACHINE RIVETER BI-RADS ATLAS category (overall): 0 - Incomplete: Needs Additional Imaging Evaluation 1. Indeterminate left breast calcifications as above. Further evaluation with diagnostic left mammography is recommended. 2. No mammographic evidence of malignancy in the right breast. Routine screening mammography of the right breast is recommended in 1 year. The patient has been or will be contacted. Narrative 06/14/2024 1:59 PM MACHINE RIVETER Screening Mammogram Bilateral W Silvano: 06/14/24 The [...] CDT) Hep C Ab Nonreactive Nonreactive [facility] Comment:Antibodies to HCV no t detected. Does NOT exclude the possibility of recent exposure to HCV. Blood specimen (specimen) 01/05/2020 2:58 PM CDT 01/05/2020 3:10 PM CDT Ashok Lantigua MD LAB MICROBIOLOGY - GENERAL OR DERABLES Edited Result - Final [facility] Department of Laboratories [place], [place] [id number] from Last 3 Months or Most Recently Relevant to Health Maintenance Insurance [facility] FEDERAL [facility] [place] [address] [facility] [place] [address] Care Teams Audiovisual Lead Technician Relationship Specialty Start Date End Date Ashok Lantigua MD [address] [place] [address] PCP - General Rheumatology 09/28/24 Kashif Bailey MD Referring Physician Cardiovascular Disease 03/07/20
--- OUTSIDE RECORDS SUMMARY | 2024-10-02 00:51 | XMS_ITS | Encounter Summary ---
Author Organization [facility] Address [address] [place] [address] Care Team Providers Care Skip Tender Name Role Phone Misbah Gan MD Primary Care Provider [phone] Encounter Details Date Type Department Care Team (Late st Contact Info) Description 02/28/2020 Abstract [facility], [address] [address] Cecilia Alves MA Social History Tobacco Use Types Packs/Day Years Used Date Smoking Tobacco: Never Smokeless Tobacco: Never Alcohol Use Standard Drinks/Week Comments Yes 1.7 (1 standard drink = 0.6 oz p ure alcohol) Comments No Sex and Gender Information Value Date Recorded Sex Assigned at Not on file Legal Sex Female 7:10 PM CDT Gender Identity Not on file Sexual Orientation Not on file documented as of this encounter Functional Status * RETIRED Are you deaf or do you have serious difficulty hearing Answer Date of Assessment Author Status No 12/13/2019 3:51 PM CDT Activ e * RETIRED Are you blind or do you have serious difficulty seeing, even when wearing glasses? Answer Date of Assessment Author Status No 12/13/2019 3:51 PM CDT Activ e * Do you have serious difficulty walking or climbing stairs? Answer Date of Assessment Author Status No 12/13/2019 3:51 PM CDT Dinah Burks RN Active * Do you have difficulty dressing or bathing? Answer Date of Assessment Author Status No 12/13/2019 3:51 PM CDT Dinah Burks RN Active * Because of a physical, mental, or emotional condition, do you have difficulty doing errands alone such as visiting a doctor's office or shopping? Answer Date of Assessment Author Status No 12/13/2019 3:51 PM Dinah Reyes RN Active documented as of this encounter Mental Status * Because of a physical, mental, or emotional condition, do you have serious difficulty concentrating, remembering, or making decisions? Answer Entry Date Author Status No 12/13/2019 3:51 PM Dinah Reyes RN Active documented in this encounter Plan of Treatment Not on file documented as of this encounter Procedures Procedure Name Priority Date/Time Associated Diagnosis Comments LIPID PANEL Routine 02/27/2020 documented in this encounter Results * LIPID PANEL (02/27/2020) CHOLESTEROL 144 0 - 199 HDL 70 > or = 50 TRIGLYCERIDES 70 0 - 149 LDL (CALCULATED) 60 0 - 129 02/27/2020 us Doc [facility] LABORATORY Final Result documented in this encounter Visit Diagnoses Not on filedocumented in this encounter Care Teams Skip Tender Relationship Specialty Start Date End Date Misbah Gan MD [address] [facility] [address] [place] [address] PCP - General FAMILY PRACTICE 11/21/19 documented as of this encounter
--- OUTSIDE RECORDS SUMMARY | 2024-10-02 00:51 | XMS_ITS | Clinical Summary ---
Author Organization [facility] Address [address] [place] [address] Care Team Providers Care Asbestos Brake Lining Finisher Helper Name Role Phone Misbah Gan MD Primary Care Provider [phone] Allergies Active Allergy Reactions Criticality Noted Date Comments Ciprofloxacin Swelling 12/13/2019 Penicillin V Swelling 12/13/2019 Sulfamethoxazole-Trimethoprim Swelling 2019 Medications ASPIRIN LOW DOSE 81 MG tablet TAKE 1 TABLET BY MOUTH DAILY 90 tablet 1 0 Active ACTEMRA ACTPEN 162 MG/0.9ML Solution Auto-injector Inject 162 mg into the skin once a week. 0 Active nitroglycerin 0.[address] 1 tablet (0.4 mg total) under the tongue every 5 (five) minutes as needed for Chest Pain (If taking 3rd dose, contact 911.). 25 tablet 1 1 Active ranolazine ER 1000 MG TABLET SR 12 HR 12 hr tablet Take 1,000 mg by mouth 2 (two) times daily. 180 tablet 1 2 Active atorvastatin (LIPITOR) 40 MG tablet TAKE 1 TABLET(40 MG) BY MOUTH EVERY NIGHT AT BEDTIME. PLEASE MAKE AN APPOINTMENT FOR FUTURE REFILLS 7 tablet 3 Active isosorbide mononitrate ER (IMDUR) 30 MG 24 hr tablet Take 1 tablet (30 mg total) by mouth daily. CALL FOR AN APPOINTMENT 7 tablet 3 Active lisinopril (PRINIVIL) 20 MG tablet Take 1 tablet (20 mg total) by mouth daily. CALL FOR AN APPOINTMENT 7 tablet 3 Active clopidogrel (PLAVIX) 75 MG tablet TAKE 1 TABLET(75 MG) BY MOUTH DAILY. PLEASE MAKE AN APPOINTMENT FOR FUTURE REFILLS 7 tablet 3 Active Active Problems Problem Noted Date Diagnosed Date Coronary artery disease invo lving [place] coronary artery of [place] heart without angina pectoris 04/02/2020 Essential hypertension 04/02/2020 Takayasu's arteritis (CMS/HCC HHS/HCC) 0 Precordial pain 11/27/2019 COOPER (dyspnea on exertion) 11/27/2019 Immunizations Immunization Administration Dates Next Due MODERNA COVID-19 (12+) MRNA, LNP-S, PF, 100 MCG/ 0.5 ML DOSE 07/18/2020 Social History Tobacco Use Types Packs/Day Years [...] Sign Reading Time Taken Comments Blood Pressure 130/0 08/12/2021 4:22 PM DIRECTOR OF GRADUATE MEDICAL EDUCATION Pulse 62 08/12/2021 4:01 PM DIRECTOR OF GRADUATE MEDICAL EDUCATION Temperature 36.6 C (97.9 F) 12/14/2019 12:43 PM CDT Respiratory Rate 16 12/25/2019 1:13 PM CDT Oxygen Saturation 100% 08/12/2021 4:01 PM DIRECTOR OF GRADUATE MEDICAL EDUCATION Inhaled Oxygen Concentration - - Weight 79.8 kg (176 lb) 10/01/2021 9:37 AM CDT Height 172.7 cm (5' 8 ) 10/01/2021 9:37 AM CDT Body Mass Index 26.76 10/01/2021 9:37 AM CDT Plan of Treatment Health Maintenance Due Date Last Done Comments ASCVD Statin 1965 Colorectal Cancer Screening Colonoscopy (10 Years) 1967 Annual Physical 1970 DTaP, Tdap and Td Vaccines ( 1 - Tdap) 1986 Hepatitis B Vaccines (1 of 3 - 19+ 3-dose series) 1986 Pneumococcal Vaccine: 50+ Years (1 of 2 - PCV) 1986 Mammogram Screening 2007 Zoster Vaccines (1 of 2) 2017 ASCVD LDL 04/11/2022 04/11/2021, 02/27/2020, 11/18/2019 COVID-19 Vaccine (2 2023-2 5 season) 2024 07/18/2020 Hepatitis C Completed 12/13/2019 Meningococcal B Vaccine Aged Out No l onger eligible based on patient's age to complete this topic Meningococcal Vaccine Aged Out No jaja johnnie eligible based on patient's age to complete this topic RSV Immunizations Under 20 Months Aged Out No longer eligible b ased on patient's age to complete this topic Procedures Procedure Name Priority Date/Time Associated Diagnosis Comments LIPID PANEL Routine 04/11/2021 7:55 AM CDT Dyslipidemia HEPATITIS PANEL,ACUTE Routine 12/13/2019 5:11 AM CDT Coronary artery disease involving [place] coronary artery of [place] heart with unstable angina pectoris from Last 3 Months or Most Recently Relevant to Health Maintenance Results * LIPID PANEL (04/11/2021 7:55 AM CDT) CHOLESTEROL 157 <200 MG/DL 04/11/2021 9:15 AM CDT [facility] TRIGLYCERIDES 60 <150 MG/DL 04/11/2021 9:15 AM CDT [facility] HDL 88 >40.0 MG/DL 04/11/2021 9:15 AM CDT [facility] LDL (CALCULATED) 57 <100 MG/DL 04/11/20 9:15 AM CDT [facility] NON HDL CHOLESTEROL 69 <130 MG/DL 04/11 9:15 AM CDT [facility] CHOL/HDL RATIO 1.8 0.0 - 4.5 04/11/2021 9:15 AM CDT [facility] VLDL CALCULATION 12 5 - 55 MG/DL 04/11/2021 9:15 AM CDT [facility] LIPID INTERPRETATION 04/11/2021 9:15 AM CDT [facility] Comment: NIH CONCENSUS REPORT RECOMMENDATIONS: ADULT CHILD LOW RISK: CHOLESTEROL <200 <170 TRIGLYCERIDE <150 --- HDL >=60 --- LDL <100 <110 BORDERLINE: CHOLESTEROL 200-239 170-199 TRIGLYCERIDE 150-199 --- HDL 40-59 --- LDL 100-159 110-129 HIGH RISK: CHOLESTEROL >=240 >=200 TRIGLYCERIDE >=200 --- HDL <40 --- LDL >=160 >=130 04/11/2021 7:55 AM CDT Kashif Bailey MD LABORATORY Final Result [facility] [address] [place] [address], [place] [phone] * HEPATITIS PANEL,ACUTE (12/13/2019 5:11 AM CDT) HEPATITIS B SURFACE AG NON-REACTI VE NON-REACTI VE 12/14/2019 7:59 AM CDT [facility] HEP B CORE IGM NON-REACTI VE NON-REACTI VE 12/14/2019 7:59 AM CDT [facility] HAV IGM NON-REACTI VE NON-REACTI VE 12/14/2019 7:59 AM CDT [facility] HEPATITIS C AB NON-REACTI VE NON-REACTI VE 12/14/2019 7:59 AM CDT [facility] 12/13/2019 5:11 AM CDT Kashif Bailey MD LABORATORY Final Result Performing Organization Address City/[facility]/ZIP Co de Phone Number [facility] [address] [place] [address], [place] [phone] from Last 3 Months or Most Recently Relevant to Health Maintenance Insurance [address] Advance Directives * Full Code (Latest Code Status on File) Date Activated Date Inactivated Comments 12/13/2019 3:41 PM 12/14/2019 4:40 PM Care Teams Asbestos Brake Lining Finisher Helper Relationship Specialty Start Date End Date Misbah Gan MD [address] [place] [address] PCP - General FAMILY PRACTICE 11/21/19
[2024-10-02 08:18] VITALS: BP 127/78; PULSE 68; RESP 16; TEMP 36.5; O2SAT 99; BMI 28.3
[2024-10-02] MEDS: LACTATED RINGERS 1,000 ML 150 ML IV CONT (08:26)
--- NOTE | 2024-10-02 08:49 | PM.HPGS ---
History of Present Illness History of Present Illness Consent: Risks, benefits, and alternatives have been discussed and questions answered. Patient agrees to proceed with procedure. Chief complaint: Fecal abnormalities Narrative: Dana Gonzalez is a 59 year old female here for first colonoscopy, had + cologuard Review of Systems Review of Systems: All systems reviewed & are unremarkable except as noted in HPI and below PMFSH Past Medical History Medical History (Updated 10/02/24 @ 08:54 by Esteban Goldman MD) Positive colorectal cancer screening using Cologuard test Social History Social History Smoking status: Never smoker Substance use type: does not use Living arrangements: with family Spiritual care concerns: No Meds Home Medications and Allergies Home Medications ?Medication ?Instructions ?Recorded ?Confirmed ?Type cyclobenzaprine 10 mg tablet 10 mg PO TID PRN muscle spasm #21 05/09/23 09/20/24 Rx tabs aspirin 81 mg capsule 81 mg PO DAILY 09/20/24 10/02/24 History atorvastatin 40 mg tablet 40 mg PO DAILY 09/20/24 10/02/24 History clopidogrel 75 mg tablet 75 mg PO DAILY 09/20/24 10/02/24 History isosorbide mononitrate 30 mg 30 mg PO DAILY 09/20/24 10/02/24 History tablet,extended release 24 hr lisinopril 20 mg tablet 20 mg PO DAILY 09/20/24 10/02/24 History Allergies Allergy/AdvReac Type Severity Reaction Status Date / Time ciprofloxacin Allergy Unknown Swelling Verified 10/02/24 08:17 Penicillins Allergy Unknown Hives / Verified 10/02/24 08:17 Red Face sulfamethoxazole Allergy Unknown Swelling Verified 10/02/24 08:17 trimethoprim Allergy Unknown Swelling Verified 10/02/24 08:17 Vital Signs Vital Signs - 24 hr 10/02/24 08:18 Temperature 97.7 F Pulse Rate 68 Respiratory Rate 16 Blood Pressure 127/78 Pulse Oximetry 99 Oxygen Delivery Room Air Exam Const: General: comfortable and no acute distress HENMT: Face/Nose/Sinus: Normal nares present Eyes: General: appearance normal, both eyes and all related structures Neck: Neck: no JVD Resp: Auscultation: clear to auscultation bilaterally Cardio: Rate: regular rate Rhythm: regular rhythm GI: Inspection: non-distended GI Palp: Yes Soft to palpation Skin: General skin exam: normal color Neuro: General: gait normal Speech: normal speech Extrem: General: normal to inspection Psych: Mental Status: mental status grossly normal Assessment and Plan Assessment and plan (1) Positive colorectal cancer screening using Cologuard test: Code(s): R19.5 - Other fecal abnormalities Status: Acute Assessment and Plan: colonoscopy
--- NOTE | 2024-10-02 09:04 | P.PNAN_ITS ---
Anes - Initial Pre Proc Eval Procedure: Operation Date: 10/02/24 09:30 Proposed Procedures p Colonoscopy - Esteban Goldman MD Date/Time: 10/02/24 09:04 Surgeon: Esteban Goldman MD Pre Op Diagnosis: Fecal abnormalities Patient Data Age: 59 Gender: F Height: 1.73 m Weight: 84.7 kg Last Vital Signs Temp 97.7 F 10/02/24 08:18 Pulse 68 10/02/24 08:18 Resp 16 10/02/24 08:18 BP 127/78 10/02/24 08:18 Pulse Ox 99 10/02/24 08:18 O2 Del Method Room Air 10/02/24 08:18 Allergies Allergy/AdvReac Type Severity Reaction Status Date / Time ciprofloxacin Allergy Unknown Swelling Verified 10/02/24 08:17 Penicillins Allergy Unknown Hives / Verified 10/02/24 08:17 Red Face sulfamethoxazole Allergy Unknown Swelling Verified 10/02/24 08:17 trimethoprim Allergy Unknown Swelling Verified 10/02/24 08:17 Home Medications ?Medication ?Instructions ?Recorded ?Confirmed ?Type cyclobenzaprine 10 mg tablet 10 mg PO TID PRN muscle spasm #21 05/09/23 09/20/24 Rx tabs aspirin 81 mg capsule 81 mg PO DAILY 09/20/24 10/02/24 History atorvastatin 40 mg tablet 40 mg PO DAILY 09/20/24 10/02/24 History clopidogrel 75 mg tablet 75 mg PO DAILY 09/20/24 10/02/24 History isosorbide mononitrate 30 mg 30 mg PO DAILY 09/20/24 10/02/24 History tablet,extended release 24 hr lisinopril 20 mg tablet 20 mg PO DAILY 09/20/24 10/02/24 History Patient hx anesthesia problems: none Family hx anesthesia problems: none Results Review: All pre-operative results and documents have been reviewed as part of the pre- operative evaluation. [facility] Past Medical History Medical History Positive colorectal cancer screening using Cologuard test Social History Social History Smoking status: Never smoker Substance use type: does not use Living arrangements: with family Spiritual care concerns: No Anes - Eval Final PreProcedure Day of Procedure 10/02/24 09:04 Patient weight: normal Lungs: normal air movement Airway: Mallampati scale class II Neurological: alert and oriented Last oral intake: >/= 8 hours ASA classification: III Emergent: no Anesthetic plan: proceed Anesthesia type and monitoring: general GIVS and standard monitoring Results Review: All pre-operative results and documents have been reviewed as part of the pre- operative evaluation. Hx of PTCA s/p LAD PCI 2019, hx takayasus arteritis, on plavix chronically. Pt doing well without cp or sob. Reports BP readings generally more accurate on L UE. Informed Consent: The patient's anesthetic plan and its attendant risks and benefits were discussed with the patient/family/POA. Questions were solicited and answers provided to the satisfaction of the patient/family/POA.
[2024-10-02 09:20] VITALS: BP 93/62; PULSE 72; RESP 21; O2SAT 99
[2024-10-02 09:30] VITALS: BP 107/69; PULSE 69; RESP 19; O2SAT 100
[2024-10-02 09:40] VITALS: BP 116/75; PULSE 74; RESP 18; O2SAT 100
== END 2024-10-02 09:53 | disposition home or self-care (01) ==
PROVIDERS: PCP Physician Assistant; Referring Provider Physician Assistant; Visit Provider Internal Medicine Gastroenterology
PROC: 0DJD8ZZ Inspection of Lower Intestinal Tract, Via Natural or Artificial Opening Endoscopic (ICD-10-PCS; CPT 45378; principal; 2024-10-02 09:30)
DX: R19.5 Other fecal abnormalities (principal); D12.3 Benign neoplasm of transverse colon; Z79.82 Long term (current) use of aspirin
CPT/HCPCS: 45385; 88305; J2003; J2704; J7120